=== PATIENT | male | born 1975 | race Caucasian/White ===

== ENCOUNTER 2019-10-23 17:50 | Emergency (ER) | payer SELFPAY ==
[2019-10-23 17:52] VITALS: BP 92/75; PULSE 81; RESP 16; TEMP 37.2; O2SAT 94; BMI 22.1
[2019-10-23 18:06] VITALS: BP 117/73; PULSE 73; RESP 16; O2SAT 96
--- NOTE | 2019-10-23 18:08 | CT_ITS ---
STUDY: CT BRAIN WITHOUT CONTRAST REASON FOR EXAM: Male, 44 years old. SEIZURES TODAY RADIATION DOSAGE (If Supplied By Facility): CTDIvol = ( 44.99 ) mGy, DLP = ( 846.73 ) mGycm TECHNIQUE: Transaxial CT imaging of the brain was performed without administration of intravenous contrast material. Individualized dose optimization techniques were used for this CT. COMPARISON: No relevant priors. FINDINGS: Normal soft tissue structures. Normal calvarium. Normal size ventricles and extra-axial spaces for the patient''s age. Normal white matter tracts of the cerebral hemispheres. Normal basal ganglia and thalami. Normal brainstem. Normal cerebellum. There is no intracranial hemorrhage. There are no findings of an acute ischemic infarction. Mild mucosal thickening in the left maxillary sinus and bilateral sphenoid sinus as well as moderate mucosal thickening in the ethmoid air cells bilaterally CT/Brain/Head without Contrast IMPRESSION: Normal unenhanced CT scan of the brain. Left maxillary, bilateral ethmoid and sphenoid sinus disease MRI may be useful for further assessment if indicated Electronically Signed: Gianni Barriga MD at 19:17 EDT , Service support ,
[2019-10-23 18:24] LABS: Absolute Lymphocyte Count 1.08 X10^3/uL (0.83-4.51); Absolute Neutrophil Count 2.1 X10^3/uL (2.0-7.7); Basophil# 0.03 X10^3/uL; Basophil% 0.8 % (0-1); Eosinophil# 0.17 X10^3/uL; Eosinophils% 4.5 % (0-5); Hematocrit 40.4 % (40-54); Hemoglobin 13.4 g/dL (13.0-16.5); Lymphocyte # 1.08 X10^3/ul (4.0); Lymphocyte % 28.9 % (19-41); Mean Corp Hgb Conc 33.2 g/dL (32-36); Mean Corpuscular Hgb 30.6 pg (27.0-32.0); Mean Corpuscular Volume 92.2 fL (80-94); Mean Platelet Vol. 8.9 fl (6.2-12.0); Monocyte# 0.34 X10^3/uL; Monocyte% 9.1 % (0-10); NRBC Flagged by Analyzer 0 % (0-5); Neutrophil # 2.11 X10^3/uL (2.7-7.7); Neutrophil % 56.4 % (47-70); Platelet Count 242 K/mm3 (150-450); RBC Distribution Width CV 14.3 % (11.6-14.6); RBC Distribution Width SD 48.3 fl (35.1-43.9); Red Blood Count 4.38 M/mm3 (4.6-6.2); White Blood Count 3.7 K/mm3 (4.4-11.0)
[2019-10-23] MEDS: 0.9% Normal Saline 1,000 ML 150 ML IV (18:25)
[2019-10-23 18:39] LABS: ALB/GLOB Ratio 0.9 RATIO (0.9-2.4); AST(SGOT) 39 U/L (15-37); Alanine Aminotransfer ALT/SGPT 56 U/L (16-61); Albumin, Serum 3.5 g/dL (3.2-5.0); Alkaline Phosphatase 65 U/L (45-117); Anion Gap 6 (5-15); BUN 8 mg/dL (7-18); BUN/Creat Ratio 9.9 RATIO (10-20); Calcium,Total 8.5 mg/dL (8.5-10.1); Chloride 103 mmol/L (98-107); Creatinine, Serum 0.81 mg/dL (0.70-1.30); EST Glomerular Filtration Rate 110 mL/min (>60); Est Glom Filt Rate - Afr Amer 133 mL/min (>60); Estimated Creatinine Clearance 137.22 ml/min; Globulin 3.7 g/dL (2.2-4.2); Glucose 80 mg/dL (74-106); Potassium 3.9 mmol/L (3.5-5.1); Protein, Total 7.2 g/dL (6.4-8.2); Sodium Level 135 mmol/L (136-145)
[2019-10-23 19:05] LABS: Carbamazepine (Tegretol) 6.7 ug/mL (4.0-12.0)
--- NOTE | 2019-10-23 19:51 | ED.RN ---
PT LEFT WITHOUT DISCHARGE INSTRUCTIONS, PT REMOVED IV FROM RFA AND WAS FOUND IN THE TRASH. DR. BLAIR AWARE OF SAME.
--- NOTE | 2019-10-23 20:07 | ED.VISSUMM ---
- ER Visit Summary Date of Service: 10/23/19 Chief Complaint: [Seizure] History of Present Illness: The patient is a 44 M [scented to the emergency department after sustaining seizures. Patient's friend called EMS. Patient apparently has a history of alcohol abuse and has been sober for the last 5 days. Patient has a seizure history and is on Tegretol which she states that he is been compliant with. Per EMS they noticed the 3 seizures separately that lasted about a minute each. Patient denies losing control of bowel or bladder. He denies biting his mouth or lip or tongue. Patient has a history of hypertension. He is somewhat of a poor historian. He denies recent illness.] Physical Examination: [HEENT-PERRLA, EOMI. Cranial nerves II through XII grossly intact. TMs clear. Mucous membranes moist. No adenopathy. No evidence of trauma to his head noted. Cardiovascular-regular rate and rhythm without murmur or ectopy Lungs-clear to auscultation, chest wall stable without crepitus or subcu emphysema Abdomen-normoactive bowel sounds, soft, nontender, no rebound or rigidity, no peritoneal signs. Neuro uqgc-[id number] and heel rodriguez testing within normal limits, negative Romberg, negative for, fundi benign. Extremities-intact ?4, normal range of motion, normal pulses, atraumatic] Test Results: [CT scan of the brain without contrast obtained showed some sinus disease but nothing acute. CBC with it showing a 3.7, hemoglobin 13, hematocrit 40, placed 242. Chemistries unremarkable. LFTs were normal. Tegretol level was 6.7. Alcohol was 23. Toxicology screen ordered and patient did not give a urinalysis.] Emergency Department Course and Treatment: [He had an IV line established on arrival. EMS had already given 10 mg of intranasal Versed.] Patient left prior to treatment completion. Before I could go back and discussed results of testing with patient he had left the department. Treatment Plan: [Left prior to treatment completion] Disposition: [Left prior to treatment completion] Impression: [Seizure-recurrent] This note was generated with [employer] software. It may contain incorrect words, spelling, and punctuation that were not noted in review of the chart prior to signing ED Disposition - Plan for ED Patient: Disposition: Home or Assisted Living Referrals: Care Physician,No Primary [Primary Care Provider] -
== END 2019-10-23 19:52 | disposition home or self-care (01) ==
LOC: ED 19:42
PROVIDERS: Emergency Provider Emergency Medicine
DX: R56.9 Unspecified convulsions (principal); F17.200 Nicotine dependence, unspecified, uncomplicated; Z53.29 Procedure and treatment not carried out because of patient's decision for other reasons
CPT/HCPCS: 70450; 80053; 80156; 80320; 85025; 99285; J7030; A4216; G0480

== ENCOUNTER 2019-10-30 01:19 | Inpatient (IN) | payer SELFPAY ==
[2019-10-30] VITALS (23 sets, daily range): BP systolic 91–132; BP diastolic 56–93; PULSE 64–87; RESP 7–18; TEMP 36.3–36.7; O2SAT 92–100; BMI 24.2; BMI 17.0; BMI 17.6
--- NOTE | 2019-10-30 01:22 | CT_ITS ---
STUDY: CT BRAIN WITHOUT CONTRAST REASON FOR EXAM: Male, 44 years old. SZ, S/P FALL, DROPPED OFF ON GROUND, FOUND WITH EMESIS AND SEIZING, HX SZ SINCE AGE 4 RADIATION DOSAGE (If Supplied By Facility): CTDIvol = ( 44.99 ) mGy, DLP = ( 880.27 ) mGycm TECHNIQUE: Transaxial CT imaging of the brain was performed without administration of intravenous contrast material. Individualized dose optimization techniques were used for this CT. COMPARISON: No relevant priors. FINDINGS: Normal soft tissue structures. Normal calvarium. Normal size ventricles and extra-axial spaces for the patient''s age. Normal white matter tracts of the cerebral hemispheres. Normal basal ganglia and thalami. Normal brainstem. Normal cerebellum. There is no intracranial hemorrhage. There are no findings of an acute ischemic infarction. Normal visualized paranasal sinuses. CT/Brain/Head without Contrast IMPRESSION: Normal unenhanced CT scan of the brain. Electronically Signed: Jimy Concepcion MD at 2:51 EDT , Service support ,
--- NOTE | 2019-10-30 01:25 | ED.VIS.GEN ---
History of Present Illness Chief Complaint: Alt LOC Limited by: Stupor Narrative: Patient was dropped off by a car. He ambulated into the emergency department and then fell to the ground. He had altered mental status. Questionable seizure activity. Per notes the patient was in the emergency department approximately a week ago. At that time he had a few outpatient seizures lasting a minute at a time. He has a history of seizure disorder and is on Tegretol. His Tegretol levels were therapeutic at that time. He has a history of alcohol use. His alcohol levels at that time were negative as he had been sober for 5 days. He vomited in the ambulance bay and collapsed. There was some mild tonic-clonic shaking for approximately a minute. Past Medical History - Allergies and Home Meds Allergies/Adverse Reactions: Allergies codeine Allergy (Verified 10/30/19 01:25) NEEDS FOLLOW-UP erythromycin base Allergy (Verified 10/23/19 18:08) NEEDS FOLLOW-UP phenytoin [From Dilantin] Allergy (Verified 10/30/19 01:25) NEEDS FOLLOW-UP Primary Care Physician: Care Physician,No Primary [Primary Care Provider] - Prior records reviewed: Yes Past Medical History: - - Alcohol abuse, seizure disorder Surgical History: - - Reviewed Smoking Status: Smoker, status unknown Alcohol: Heavy Drugs: None Review of Systems ROS: Unable to Obtain - Unable to obtain secondary to the patient with altered mental status Physical Exam Vital Signs/Narrative: Vital Signs Temp Pulse Resp BP Pulse Ox 10/30/19 01:21 97.6 F L 84 16 127/93 H 98 General: Well nourished, Well developed Head: Normocephalic, Atraumatic. Negative for: Trauma, Tenderness Eyes: Perrl, EOMI ENT: Moist mucous membranes, No rhinorrhea Neck: Supple, Nontender Cardiovascular: Regular rate, Regular rhythm, No murmurs Respiratory: No distress, CTA bilaterally, Chest nontender Abdomen: Soft, Nontender, Nondistended, Normal bowel sounds Back: Nontender, Normal Inspection Extremities: Nontender, No edema Skin: Normal color, No rash Neurological: - - Patient appears intoxicated with alcohol. He has had a few intermittent tonic-clonic seizures lasting a minute. He then wakes up and can answer questions for short period of time however he is intoxicated. Diagnostic/Tx/Re-eval - Medical Decision Making IV established and patient given a dose of Ativan to stop these intermittent tonic-clonic seizures. Lab work and CT head obtained. Patient given IV fluids. CT head negative. Lab work shows a mildly low sodium and chloride. This was replaced with IV fluids. His carbamazepine level is on the low side of normal. Patient stated he has not missed a dose. Had approximately 10-15 seizures in the emergency department. They are never sustained. Patient stated Versed is the only thing that works for him. He was given a dose of IV Versed and this stopped his seizures. He is sleeping comfortably without any seizure activity. Discussed with the hospitalist. Alcohol level is 200. I do not think this is an alcohol withdrawal seizure. I think this is epilepsy related seizures. I feel he will have to increase the dosing of his medications. He will be admitted to the intensive care unit for close monitoring due to his sedation - Critical Care Time Critical care time (excluding procedures): 30-74 minutes ED Disposition - Plan for ED Patient: Disposition: Acute Care Hospital [facility] Diagnosis: Epilepsy, Alcohol intoxication
[2019-10-30] MEDS: Midazolam 2 MG/2 ML Syringe IM (01:44)
[2019-10-30] MEDS: Ondansetron 4 MG/2 ML Vial IV (01:51)
[2019-10-30] MEDS: LORazepam 2 MG/ML Syringe IV (01:51)
[2019-10-30] MEDS: 0.9% Normal Saline 1,000 ML 1000 ML IV (01:57)
[2019-10-30 02:06] LABS: Absolute Lymphocyte Count 1.72 X10^3/uL (0.83-4.51); Absolute Neutrophil Count 3.1 X10^3/uL (2.0-7.7); Basophil# 0.04 X10^3/uL; Basophil% 0.7 % (0-1); Eosinophil# 0.24 X10^3/uL; Eosinophils% 4.2 % (0-5); Hematocrit 37.7 % (40-54); Hemoglobin 13.1 g/dL (13.0-16.5); Lymphocyte # 1.72 X10^3/ul (4.0); Lymphocyte % 30.3 % (19-41); Mean Corp Hgb Conc 34.7 g/dL (32-36); Mean Corpuscular Volume 89.1 fL (80-94); Mean Platelet Vol. 8.2 fl (6.2-12.0); Monocyte# 0.53 X10^3/uL; Monocyte% 9.3 % (0-10); NRBC Flagged by Analyzer 0 % (0-5); Neutrophil # 3.13 X10^3/uL (2.7-7.7); Neutrophil % 55.1 % (47-70); Platelet Count 211 K/mm3 (150-450); RBC Distribution Width CV 14.2 % (11.6-14.6); RBC Distribution Width SD 46.1 fl (35.1-43.9); Red Blood Count 4.23 M/mm3 (4.6-6.2); White Blood Count 5.7 K/mm3 (4.4-11.0)
[2019-10-30] MEDS: Midazolam 5 MG/ML Syringe IV (02:11)
[2019-10-30 02:21] LABS: Anion Gap 11 (5-15); BUN 7 mg/dL (7-18); BUN/Creat Ratio 7.7 RATIO (10-20); Calcium,Total 8.4 mg/dL (8.5-10.1); Chloride 94 mmol/L (98-107); EST Glomerular Filtration Rate 97 mL/min (>60); Est Glom Filt Rate - Afr Amer 118 mL/min (>60); Estimated Creatinine Clearance 123.05 ml/min; Glucose 87 mg/dL (74-106); Potassium 3.4 mmol/L (3.5-5.1); Sodium Level 129 mmol/L (136-145)
[2019-10-30 02:36] LABS: Carbamazepine (Tegretol) 7.6 ug/mL (4.0-12.0)
--- NOTE | 2019-10-30 03:40 | HP.PCM_ITS ---
Problem List (1) Status epilepticus Status: Acute (2) Alcohol abuse Status: Chronic (3) Marfan's syndrome Status: Chronic (4) Epilepsy Status: Chronic (5) Alcohol intoxication Status: Acute History of Present Illness Date of Admission: 10/30/19 Chief Complaint: Change in mental status. The patient is a 44 year old M with past medical history as mentioned above presented to the emergency room because of change in mental status. At this time, patient is very sleepy and lethargic because he received total of 7 mg of Versed and 2 mg of Ativan for seizure and he is not able to provide any history. No family at the bedside. Patient is from [place] and he has been with his friend for a month. Reportedly, patient was dropped off by a car at the emergency department, ambulated into the emergency department and he fell to the ground. According to ER physician, patient had approximately 10-15 brief episodes of tonic-clonic seizure while in the emergency department, lasted for around 30 seconds each and received 2 mg of IV Ativan which did not help and then he received total of 7 mg of IV Versed and seizure stopped. Patient came to the emergency department on 1 week ago for seizure, had CT scan done which was unremarkable and he was discharged home. Apparently, he had a history of alcohol abuse but reportedly, he has been sober for the last 5 days. According to the ER staff, patient had a history of epilepsy since he was 4 years old and he has been on Tegretol since then. Patient stated to the ER staff that usually he has 5-6 brief seizures every day and that is usual for him. He has been following up with neurology in [facility]. Reportedly, patient mentioned that he did not miss any dose of his Tegretol. In the emergency department, his vital signs were stable. His routine blood work was remarkable for sodium of 129 and potassium of 3.4. Blood alcohol level was 200. Carbamazepine level is 7.[address] scan brain showed no acute findings. He is being admitted for status epilepticus. Past Medical History Past Medical History (Chronic Problems): Chronic Problems Alcohol abuse (Chronic) Marfan's syndrome (Chronic) Epilepsy (Chronic) Allergies codeine Allergy (Verified 10/30/19 01:25) NEEDS FOLLOW-UP erythromycin base Allergy (Verified 10/23/19 18:08) NEEDS FOLLOW-UP phenytoin [From Dilantin] Allergy (Verified 10/30/19 01:25) NEEDS FOLLOW-UP Home Medications: Ambulatory Orders Medication Instructions Recorded Carbamazepine [Tegretol] 400 mg PO BIDCM 10/30/19 Surgical History: noncontributory Psychiatric History: No pertinent psych hx Lives: Friends Smoking Status: Current every day smoker Alcohol: Heavy Drugs: None - *Family History Maternal History Items: No pertinent history Paternal History Items: No pertinent history Review of Systems Constitutional: Reports: - - Unobtainable, patient is very sleepy and lethargic. Eyes: Reports: - - Unobtainable, patient is very sleepy and lethargic. HEENT: Reports: - - Unobtainable, patient is very sleepy and lethargic. Cardiovascular: Reports: - - Unobtainable, patient is very sleepy and lethargic. Respiratory: Reports: - - Unobtainable, patient is very sleepy and lethargic. Gastrointestinal: Reports: - - Unobtainable, patient is very sleepy and lethargic. Genitourinary: Reports: - - Unobtainable, patient is very sleepy and lethargic. Musculoskeletal: Reports: - - Unobtainable, patient is very sleepy and lethargic. Neurological: Reports: - - Unobtainable, patient is very sleepy and lethargic. Psychiatric: Reports: - - Unobtainable, patient is very sleepy and lethargic. VTE Information - Inpt Only VTE Present on Admission: No VTE Mechan Device Prophylaxis: None VTE Pharm Prophylaxis ordered?: Yes Patient Problems: Active and Suspected Problems Status epilepticus (Acute) Alcohol intoxication (Acute) - Physical Exam Vitals/I&O's: Vital Signs Temp Pulse Resp BP Pulse Ox 97.6 F L 84 17 116/74 98 10/30/19 01:21 10/30/19 02:20 10/30/19 02:20 10/30/19 02:20 10/30/19 02:20 Oxygen Delivery Method Non-Rebreather Weight: 188 lb 7.924 oz Body Mass Index (BMI) 24.2 Finger Stick Blood Glucose 88 Intake and Output for Last 24 Hours 10/28/19 10/29/19 10/30/19 23:59 23:59 23:59 Intake Total 1000 / 1000 Balance 1000 / 1000 General: - - Very sleepy, difficult to arouse, moving all limbs. HEENT: Atraumatic, PERRLA, EOMI, Normocephalic Oral: Moist Mucosa, No Gingival or Mucosal Lesions/ Ulcerations Neck: Supple, No JVD, Negative Carotid Bruits, Trachea Midline, Thyroid Normal Size and Texture Lungs: Clear to auscultation, Normal air movement, No rhonchi, No wheeze, No rales Cardiovascular: Regular rate, Regular Rhythm, Normal S1, Normal S2, PMI Normal Abdomen: Bowel Sounds Present, Soft, Non Tender, Non-Distended, No Hepato- splenomegaly Extremities: No clubbing, No cyanosis, No edema Skin: No rashes, No breakdown Lymphatic: No Cervical, Supraclavicular, or Inguinal Adenopathy Neurological: Cranial nerves II-XII grossly intact, - - Moving all limbs. Psych/Mental Status: - - Unable to assess. Laboratory Results 10/30/19 01:55: WBC 5.7, RBC 4.23 L, Hgb 13.1, Hct 37.7 L, MCV 89.1, MCH 31.0, MCHC 34.7, RDW Std Deviation 46.1 H, RDW Coeff of Evan 14.2, Plt Count 211, MPV 8.2, Immature Gran % (Auto) 0.400, Neut % (Auto) 55.1, Lymph % (Auto) 30.3, Moore % (Auto) 9.3, Eos % (Auto) 4.2, Baso % (Auto) 0.7, Absolute Neuts (auto) 3.1, Absolute Lymphs (auto) 1.72, Nucleated RBC % 0 10/30/19 01:55: Sodium 129 L, Potassium 3.4 L, Chloride 94 L, Carbon Dioxide 24.0, Anion Gap 11, BUN 7, Creatinine 0.90, Estim Creat Clear Calc 123.05, Est GFR (MDRD) Af Amer 118, Est GFR (MDRD) Non-Af 97, BUN/Creatinine Ratio 7.7 L, Glucose 87, Calcium 8.4 L 10/30/19 01:55: Ethyl Alcohol 200.0 10/30/19 01:55: Carbamazepine 7.6 Clinical Impression(s) from Imaging Studies Brain CT 10/30/19 01:22 IMPRESSION: Normal unenhanced CT scan of the brain. Electronically Signed: Jimy Concepcion MD at 2:51 EDT , Service support , Assessment/Plan All Active Problems Status epilepticus (Acute) Alcohol intoxication (Acute) This is a 44 years old male patient presented to the emergency room because of change in mental status, had multiple brief tonic clonic seizures approximately 10-15 episodes in the ED and is being admitted for status epilepticus. #1 status epilepticus: In context of history of epilepsy since age of 4, has been on carbamazepine, compliant. Patient had a history of alcohol abuse but reportedly, he was sober for 5 days. Today blood alcohol level is 200. I doubt that this seizure is due to alcohol withdrawal. CT scan brain showed no acute findings. Carbamazepine level is therapeutic. Patient is very sleepy and lethargic but vital signs are stable. Plan: Admit to ICU, critical care monitoring, complete bedrest, aspiration and seizure precautions, IV fluids with potassium replacement and D5, critical care consult, tele-neurology consult, carbamazepine 400 mg p.o. 3 times daily to be started when patient is awake, repeat CBC and BMP tomorrow morning. #2 hyponatremia/mild hypokalemia: Likely due to dehydration. Plan for IV fluids with D5 normal saline and potassium supplement, repeat BMP tomorrow morning. #3 alcohol intoxication: Blood alcohol level is 200. LFT was unremarkable. At this time, patient is very lethargic. No evidence of acute alcohol withdrawal. At this time, I do not think his seizures due to alcohol withdrawal. Plan as above, start IV folic acid and thiamine as above. #4 Marfan syndrome: Stable. #5 epilepsy: Plan as above. #6 DVT prophylaxis: Subcu Lovenox. This note was generated with [employer] dictation software. It may contain incorrect words, spelling, and punctuation that were not noted in checking the note before signing. Inpatient E&M: 85081 Init Hosp L3
[2019-10-30] MEDS: 0.9% Saline Lock 10 ML Syringe IV (04:39)
[2019-10-30 06:09] LABS: Absolute Lymphocyte Count 1.35 X10^3/uL (0.83-4.51); Absolute Neutrophil Count 2.7 X10^3/uL (2.0-7.7); Basophil# 0.04 X10^3/uL; Basophil% 0.8 % (0-1); Eosinophil# 0.26 X10^3/uL; Eosinophils% 5.5 % (0-5); Hematocrit 38.4 % (40-54); Hemoglobin 12.9 g/dL (13.0-16.5); Lymphocyte # 1.35 X10^3/ul (4.0); Lymphocyte % 28.4 % (19-41); Mean Corp Hgb Conc 33.6 g/dL (32-36); Mean Corpuscular Hgb 30.6 pg (27.0-32.0); Mean Corpuscular Volume 91.2 fL (80-94); Mean Platelet Vol. 8.4 fl (6.2-12.0); Monocyte# 0.35 X10^3/uL; Monocyte% 7.4 % (0-10); NRBC Flagged by Analyzer 0 % (0-5); Neutrophil # 2.74 X10^3/uL (2.7-7.7); Neutrophil % 57.7 % (47-70); Platelet Count 196 K/mm3 (150-450); RBC Distribution Width CV 14.1 % (11.6-14.6); RBC Distribution Width SD 47.5 fl (35.1-43.9); Red Blood Count 4.21 M/mm3 (4.6-6.2); White Blood Count 4.8 K/mm3 (4.4-11.0)
[2019-10-30 06:21] LABS: Anion Gap 8 (5-15); BUN 6 mg/dL (7-18); BUN/Creat Ratio 8.2 RATIO (10-20); Calcium,Total 8.1 mg/dL (8.5-10.1); Chloride 102 mmol/L (98-107); Creatinine, Serum 0.73 mg/dL (0.70-1.30); EST Glomerular Filtration Rate 124 mL/min (>60); Est Glom Filt Rate - Afr Amer 150 mL/min (>60); Estimated Creatinine Clearance 154.84 ml/min; Glucose 83 mg/dL (74-106); Potassium 3.7 mmol/L (3.5-5.1); Sodium Level 135 mmol/L (136-145)
[2019-10-30] MEDS: LORazepam 2 MG/ML Syringe 1 MG IV ×3 (08:15→17:11)
--- NOTE | 2019-10-30 08:30 | PCM.PROGNOTE ---
Patient Problems: Active and Suspected Problems Status epilepticus (Acute) Alcohol intoxication (Acute) Subjective: The patient is a 44-year-old male with a past medical history of seizure disorder, Marfan syndrome, tobacco dependence and alcohol dependence who presented to the emergency department today due to repeated seizures. He was dropped off at the ER by a car ambulated into the emergency department and then fell to the ground. He had altered mental status. He had been seen in the emergency department 1 week prior also for repeated seizures. His only medication is Tegretol and he is compliant with the Tegretol. Levels at both admissions were within normal limits. His alcohol level at the first visit was 0 but this morning was 200. He recently moved to [place] from [place]. I was able to talk with Salvador this morning for a brief time prior to him having a seizure. He states he drinks a Sixpack a day and he is done this for over 20 years. Also uses marijuana, not prescribed to him, 2-3 times a day every day. There was no tox screen done at admission. His alcohol level at presentation to the emergency department was 200. The Tegretol level was 7.6. He does not see a neurologist but told me he sees a neurosurgeon. His speech is slurred and difficult to understand. He does not make eye contact. Eyes any recent head trauma. He told the emergency room doctor he has 5-6 seizures a day on a regular basis. Lab was personally reviewed. White blood cell count is within normal limits with an unremarkable differential. Hemoglobin today is 12.9 following IV fluids. Platelets are normal. Sodium today is 135 but was 129 at admission. The potassium today is 3.7, up from 3.4 in the emergency department. BUN is 8 and the creatinine is 0.73. Glucose at presentation to the ER was 87. Calcium was low at 8.4 and the calcium today is 8.1. Liver panel 1 week ago was within normal limits. Brain CT this morning was normal. He c/o abdominal pain to me but denied fevers/chills/SOB/cough/CP. He then became unresponsive and had generalized tonic clonic activity. He was turned to the left. He did not respond to a sternal rub nor a painful stimulus to his fingernail. Muscles were rigid. Tonic-clonic activity lasted approximately 20 to 30 seconds. After a short time he briefly opened his eyes and he again had generalized tonic-clonic activity and was unresponsive. He was given 1 mg of Ativan IV and the seizure stopped. After a few minutes he opened his eyes and was able to follow commands. The [facility] neurologist then came on line. I was present when the [facility] neurologist was on screen and provided hx. His recommendation is to add Keppra 500 mg BID to his drug regimen and get an EEG. - Physical Exam Vitals/I&O's: Vital Signs Temp Pulse Resp BP Pulse Ox 97.4 F L 77 17 118/88 H 98 10/30/19 05:00 10/30/19 07:00 10/30/19 07:00 10/30/19 07:00 10/30/19 07:20 Oxygen Flow Rate (L/min) 2 Oxygen Delivery Method Nasal Cannula Weight: 184 lb 15.485 oz Body Mass Index (BMI) 17.6 Finger Stick Blood Glucose 88 Intake and Output for Last 24 Hours 10/28/19 10/29/19 10/30/19 23:59 23:59 23:59 Intake Total 1102.45 / 1102.45 Output Total 1350 / 1350 Balance -247.55 / -247.55 General: Cooperative, - - His speech is slurred and sometimes unintelligible. Head is turned to the left and he does not make eye contact when I am talking to him. He is able to follow simple commands. He is cachetic in appearance. HEENT: Atraumatic, PERRLA, EOMI, Normocephalic Oral: Dry Mucosa, - - When he protruded his tongue after the 2 seizures it deviated to the left Neck: Supple, No JVD, Negative Carotid Bruits, No Nodes, No Nuchal Rigidity, Trachea Midline Lungs: Clear to auscultation - anterior and lateral but diminished Cardiovascular: Regular rate, Regular Rhythm, Normal S1, Normal S2, No murmurs, No rub noted, No Gallop Abdomen: Bowel Sounds Present, Soft, Non-Distended, Tender - in the mid epigastric area, - - no guarding with palpation Extremities: No clubbing, No cyanosis, No edema, No Calf Tenderness Skin: No rashes, No breakdown Musculoskeletal: Cachexia Neurological: - - No facial asymmetry. Can lift both arms up in both legs up off the bed without assistance. Deviates mildly to the left when protruded. Having generalized tonic-clonic activity x2 events while I was observing him. Speech is slurred. Psych/Mental Status: Flat Affect, - - was agitated and swearing at his nurse this morning. Left AMA from the ED last week. Laboratory Results 10/30/19 01:55: WBC 5.7, RBC 4.23 L, Hgb 13.1, Hct 37.7 L, MCV 89.1, MCH 31.0, MCHC 34.7, RDW Std Deviation 46.1 H, RDW Coeff of Evan 14.2, Plt Count 211, MPV 8.2, Immature Gran % (Auto) 0.400, Neut % (Auto) 55.1, Lymph % (Auto) 30.3, [place] % (Auto) 9.3, Eos % (Auto) 4.2, Baso % (Auto) 0.7, Absolute Neuts (auto) 3.1, Absolute Lymphs (auto) 1.72, Nucleated RBC % 0 10/30/19 01:55: Sodium 129 L, Potassium 3.4 L, Chloride 94 L, Carbon Dioxide 24.0, Anion Gap 11, BUN 7, Creatinine 0.90, Estim Creat Clear Calc 123.05, Est GFR (MDRD) Af Amer 118, Est GFR (MDRD) Non-Af 97, BUN/Creatinine Ratio 7.7 L, Glucose 87, Calcium 8.4 L 10/30/19 01:55: Ethyl Alcohol 200.0 10/30/19 01:55: Carbamazepine 7.6 10/30/19 06:01: Sodium 135 L, Potassium 3.7, Chloride 102, Carbon Dioxide 25.0, Anion Gap 8, BUN 6 L, Creatinine 0.73, Estim Creat Clear Calc 154.84, Est GFR (MDRD) Af Amer 150, Est GFR (MDRD) Non-Af 124, BUN/Creatinine Ratio 8.2 L, Glucose 83, Calcium 8.1 L 10/30/19 06:01: WBC 4.8, RBC 4.21 L, Hgb 12.9 L, Hct 38.4 L, MCV 91.2, MCH 30.6, MCHC 33.6, RDW Std Deviation 47.5 H, RDW Coeff of Evan 14.1, Plt Count 196, MPV 8.4, Immature Gran % (Auto) 0.200, Neut % (Auto) 57.7, Lymph % (Auto) 28.4, [place] % (Auto) 7.4, Eos % (Auto) 5.5 H, Baso % (Auto) 0.8, Absolute Neuts (auto) 2.7, Absolute Lymphs (auto) 1.35, Nucleated RBC % 0 Current Medications Carbamazepine (Tegretol) 400 mg PO TIDCM [facility] Enoxaparin Sodium (Lovenox) 40 mg SC DAILY [facility] Sodium Chloride () 250 mls @ 15 mls/hr IV .[id number] PRN PRN Reason: Saline Flush Potassium Chloride/Dextrose/Sod Cl () 1,000 mls @ 75 mls/hr IV .[id number] [facility] Last Infusion: 10/30/19 05:30 Dose: 75 mls/hr Documented by: Folic Acid 1 mg/ Sodium (Chloride) 50.2 mls @ 200 mls/hr IV DAILY [facility] Last Infusion: 10/30/19 05:11 Dose: Infused Documented by: Thiamine HCl 100 mg/ Sodium (Chloride) 51 mls @ 200 mls/hr IV DAILY [facility] Last Infusion: 10/30/19 05:30 Dose: Infused Documented by: Midazolam HCl (Versed) 5 mg IV X1 PRN PRN Reason: SEIZURE Ondansetron HCl (Zofran) 4 mg IV Q8H PRN PRN PRN Reason: NAUSEA/VOMITING Sodium Chloride () 10 - 40 ml IV UD PRN PRN Reason: SALINE FLUSH Last Admin: 10/30/19 04:39 Dose: 10 ml Documented by: Medical Necessity - Tobacco Use Smoking Status: Current every day smoker Assessment/Plan All Active Problems Status epilepticus (Acute) Alcohol intoxication (Acute) Impressions 1. Status epilepticus 2. Seizure disorder with therapeutic Tegretol level while having status epilepticus. Not following with a neurologist. 3. Tobacco dependence 4. Alcohol dependence for greater than 20 years 5. Daily marijuana usage 6. History of Marfan syndrome 7. Underweight 8. Hypokalemia -resolved 9. Hyponatremia-improving Appreciate the assistance of the [facility] tele-neurologist. Will order an EEG. Give 1 gm Keppra IV now and then start 500 mg BID. If he is not awake and able to take pills within the next hour will insert an NG and restart the Tegretol. Ativan 1 mg PRN Q 4 H PRN seizures lasting > 1 minute or repeated seizures Continue Thiamine and add folic acid 1 mg daily Liver panel, magnesium, phosphorus, urine drug screen Consult the dietitian for recommendations regarding diet Dr. Little has been consulted to participate in management and we discussed the case this morning. Would like to get him a PCP to follow with since it looks like we are going to see him frequently with 2 visits in the ED within the past week SW to discuss follow up with him
[2019-10-30 08:53] LABS: Phosphorus 4.5 mg/dL (2.5-4.9)
[2019-10-30 09:01] LABS: Bedside Glucose 88 mg/dL (70-110)
[2019-10-30 09:03] LABS: Amphetamine Urine VISTA NEGATIVE (<1000 ng/mL); Barbiturate Urine VISTA NEGATIVE (< 200 ng/mL); Benzodiazepine Urine VISTA POSITIVE (< 200 ng/mL); Cocaine Urine VISTA NEGATIVE (< 300 ng/mL); Ecstacy Urine VISTA NEGATIVE (< 500 ng/mL); Methadone Urine VISTA NEGATIVE (< 300 ng/mL); PCP Urine VISTA NEGATIVE (< 25 ng/mL); THC Urine VISTA POSITIVE (< 50 ng/mL); Vista UDS pH Range 6
[2019-10-30 09:05] LABS: AST(SGOT) 30 U/L (15-37); Alanine Aminotransfer ALT/SGPT 40 U/L (16-61); Albumin, Serum 3.2 g/dL (3.2-5.0); Alkaline Phosphatase 64 U/L (45-117); Bilirubin, Direct 0.13 mg/dL (0.00-0.30); Globulin 3.2 g/dL (2.2-4.2); Magnesium 1.9 mg/dL (1.6-2.6); Protein, Total 6.4 g/dL (6.4-8.2)
[2019-10-30] MEDS: levETIRAcetam IV 1,000 MG/100 ML BAG 400 MG IV ×2 (09:05→17:48)
[2019-10-30] MEDS: carBAMazepine 200 MG Tablet 400 MG PO (10:08)
[2019-10-30] MEDS: Folic Acid/Vitamin B Comp W-C 1 Capsule 1 CAP PO (10:08)
--- NOTE | 2019-10-30 11:41 | CASEMGMT ---
SW participated in ICU rounds, met with pt in the attempt to do an assessment, however assessment cut short as pt started to shake and unable to answer questions, SW notified RN who came into room to tend to pt. SW did ask pt prior to this about living arrangement, insurance. Pt explained has been living with a friend from [place] in the friend's car, and they have been staying here in [place] to work at [employer]. Pt did confirm he is from [place] and is here to work. Pt has Medicaid in [place] and states plans to apply here. Pt agreeable to take a Medicaid application. SW inquired about a PCP, pt states plans to see someone. SW inquired if he has a doctor in mind or would like a list of PCPs in the area, pt agreeable to take a list. SW inquired about pharmacy, however then pt then covered his head and started shaking. SW notified RN who immediately came in to tend to pt. SW/CM will speak further w/pt when appropriate. SY did leave the following resources at pt's bedside: Medicaid Application, [facility] financial assistance form, Good [employer] information, information on other prescription assistance programs, and financial and alcohol abuse resource in the [facility]. SW/CM will follow up again when appropriate. AYAN Hancock
--- NOTE | 2019-10-30 13:00 | NURSING ---
Patient refused EEG, aware
--- NOTE | 2019-10-30 13:44 | CPS ---
Entered patient's room and introduced myself then explained that I was here to conduct and EEG. Patient verbally refused 2x and states that he just had one done 3 [address] [place]. Wilkinson was notified and responded that she was aware patient refused.
--- NOTE | 2019-10-30 16:36 | NURSING ---
Patient had back to back seizures, starting at 1636 and ending at 1724 for a total of 8 seizures. Patient received 1mg Ativan at 1640, 1mg of Ativan at 1711 and 5mg of versed at 1724. Dr. Wilkinson called to bedside at 1700. Patient was lethargic throughout seizure activity, however woke up at 1745 agitated and wanting to go home. Dr. Wilkinson, this RN and Suyapa Shore RN spoke with patient about needing to transfer to [facility] and the consequences of going home AMA. It was also explained to him that he just received large amounts of sedative medications to stop the seizures. Patient became more agitated with nursing staff. At 1820 patient started to try to get out of bed, ripping off his monitor. This RN and Suyapa Shore RN was at bedside and tried to calm patient down and to get back into bed, however patient was unable to be redirected. The patient became extremely agitated and a Code Nichole was called at 1825. After the code nichole and extra staff including HRO came to room, patient calmed down. The patient requested to get up and go to the bathroom, and upon physician approval, the patient was assisted to the BS by Suyapa Shoer, ANANTH. The patient remained awake, alert and oriented and continued to request to go AMA. Dr. Wilkinson at bedside to speak to patient. Patient continued to refuse transfer to [facility] or any other [facility]. Patient continued to demand to leave AMA. Patient left AMA at 1900.
[2019-10-30] MEDS: Midazolam 2 MG/2 ML Syringe 5 MG IV (17:24)
--- NOTE | 2019-10-30 17:37 | DS.PCM_ITS ---
Discharge Date and Diagnosis - Problem List Patient Problems: Active and Suspected Problems Status epilepticus (Acute) Alcohol intoxication (Acute) Date of Admission: 10/30/19 Date of Discharge: 10/30/19 - Primary Discharge Diagnosis Acute Problems: Active Problems Status epilepticus (Acute) Alcohol intoxication (Acute) Hypokalemia-resolved hyponatremia - Secondary Discharge Diagnosis Chronic Problems: Chronic Problems Alcohol abuse (Chronic) admits to a sixpack of beer a day greater than 20 years Marfan's syndrome (Chronic) Epilepsy (Chronic) Tobacco dependence Illicit marijuana usage 2-3 times daily. Hospital Course and Treatment Imaging Results: Clinical Impression(s) from Imaging Studies Brain CT 10/30/19 01:22 IMPRESSION: Normal unenhanced CT scan of the brain. Electronically Signed: Jimy Concepcion MD at 2:51 EDT , Service support , Laboratory Tests 10/30/19 10/30/19 10/30/19 Range/Units 08:40 06:01 06:01 WBC (4.4-11.0) K/mm3 RBC (4.6-6.2) M/mm3 Hgb (13.0-16.5) g/dL Hct (40-54) % MCV (80-94) fL MCH (27.0-32.0) pg MCHC (32-36) g/dL RDW Std Deviation (35.1-43.9) fl RDW Coeff of Evan (11.6-14.6) % Plt Count (150-450) K/mm3 MPV (6.2-12.0) fl Immature Gran % (Auto) (0.0-0.9) % Neut % (Auto) (47-70) % Lymph % (Auto) (19-41) % [place] % (Auto) (0-10) % Eos % (Auto) (0-5) % Baso % (Auto) (0-1) % Absolute Neuts (auto) (2.0-7.7) X10^3/uL Absolute Lymphs (auto) (0.83-4.51) X10^3/uL Nucleated RBC % (0-5) % Sodium (136-145) mmol/L Potassium (3.5-5.1) mmol/L Chloride (98-107) mmol/L Carbon Dioxide (21.0-32.0) mmol/L Anion Gap (5-15) BUN (7-18) mg/dL Creatinine (0.70-1.30) mg/dL Estim Creat Clear Calc ml/min Est GFR (MDRD) Af Amer (>60) mL/min Est GFR (MDRD) Non-Af (>60) mL/min BUN/Creatinine Ratio (10-20) RATIO Glucose (74-106) mg/dL Calcium (8.5-10.1) mg/dL Phosphorus 4.5 (2.5-4.9) mg/dL Magnesium 1.9 (1.6-2.6) mg/dL Total Bilirubin 0.20 (0.20-1.00) mg/dL Direct Bilirubin 0.13 (0.00-0.30) mg/dL AST 30 (15-37) U/L ALT 40 (16-61) U/L Alkaline Phosphatase 64 (45-117) U/L Total Protein 6.4 (6.4-8.2) g/dL Albumin 3.2 (3.2-5.0) g/dL Globulin 3.2 (2.2-4.2) g/dL Urine Opiates Screen NEGATIVE (< 300 ng/mL) Urine Methadone Screen NEGATIVE (< 300 ng/mL) Ur Barbiturates Screen NEGATIVE (< 200 ng/mL) Carbamazepine (4.0-12.0) ug/mL Ur Phencyclidine Scrn NEGATIVE (< 25 ng/mL) Ur Amphetamines Screen NEGATIVE (<1000 ng/mL) U Methamphetamin-MDMA NEGATIVE (< 500 ng/mL) U Benzodiazepines Scrn POSITIVE H (< 200 ng/mL) Urine Cocaine Screen NEGATIVE (< 300 ng/mL) U Cannabinoids Screen POSITIVE H (< 50 ng/mL) Ur Drug Screen Comment Ethyl Alcohol mg/dL POC Glucose (70-110) mg/dL 10/30/19 10/30/19 10/30/19 Range/Units 06:01 06:01 01:55 WBC 4.8 (4.4-11.0) K/mm3 RBC 4.21 L (4.6-6.2) M/mm3 Hgb 12.9 L (13.0-16.5) g/dL Hct 38.4 L (40-54) % MCV 91.2 (80-94) fL MCH 30.6 (27.0-32.0) pg MCHC 33.6 (32-36) g/dL RDW Std Deviation 47.5 H (35.1-43.9) fl RDW Coeff of Evan 14.1 (11.6-14.6) % Plt Count 196 (150-450) K/mm3 MPV 8.4 (6.2-12.0) fl Immature Gran % (Auto) 0.200 (0.0-0.9) % Neut % (Auto) 57.7 (47-70) % Lymph % (Auto) 28.4 (19-41) % [place] % (Auto) 7.4 (0-10) % Eos % (Auto) 5.5 H (0-5) % Baso % (Auto) 0.8 (0-1) % Absolute Neuts (auto) 2.7 (2.0-7.7) X10^3/uL Absolute Lymphs (auto) 1.35 (0.83-4.51) X10^3/uL Nucleated RBC % 0 (0-5) % Sodium 135 L (136-145) mmol/L Potassium 3.7 (3.5-5.1) mmol/L Chloride 102 (98-107) mmol/L Carbon Dioxide 25.0 (21.0-32.0) mmol/L Anion Gap 8 (5-15) BUN 6 L (7-18) mg/dL Creatinine 0.73 (0.70-1.30) mg/dL Estim Creat Clear Calc 154.84 ml/min Est GFR (MDRD) Af Amer 150 (>60) mL/min Est GFR (MDRD) Non-Af 124 (>60) mL/min BUN/Creatinine Ratio 8.2 L (10-20) RATIO Glucose 83 (74-106) mg/dL Calcium 8.1 L (8.5-10.1) mg/dL Phosphorus (2.5-4.9) mg/dL Magnesium (1.6-2.6) mg/dL Total Bilirubin (0.20-1.00) mg/dL Direct Bilirubin (0.00-0.30) mg/dL AST (15-37) U/L ALT (16-61) U/L Alkaline Phosphatase (45-117) U/L Total Protein (6.4-8.2) g/dL Albumin (3.2-5.0) g/dL Globulin (2.2-4.2) g/dL Urine Opiates Screen (< 300 ng/mL) Urine Methadone Screen (< 300 ng/mL) Ur Barbiturates Screen (< 200 ng/mL) Carbamazepine 7.6 (4.0-12.0) ug/mL Ur Phencyclidine Scrn (< 25 ng/mL) Ur Amphetamines Screen (<1000 ng/mL) U Methamphetamin-MDMA (< 500 ng/mL) U Benzodiazepines Scrn (< 200 ng/mL) Urine Cocaine Screen (< 300 ng/mL) U Cannabinoids Screen (< 50 ng/mL) Ur Drug Screen Comment Ethyl Alcohol mg/dL POC Glucose (70-110) mg/dL 10/30/19 10/30/19 10/30/19 Range/Units 01:55 01:55 01:55 WBC 5.7 (4.4-11.0) K/mm3 RBC 4.23 L (4.6-6.2) M/mm3 Hgb 13.1 (13.0-16.5) g/dL Hct 37.7 L (40-54) % MCV 89.1 (80-94) fL MCH 31.0 (27.0-32.0) pg MCHC 34.7 (32-36) g/dL RDW Std Deviation 46.1 H (35.1-43.9) fl RDW Coeff of Evan 14.2 (11.6-14.6) % Plt Count 211 (150-450) K/mm3 MPV 8.2 (6.2-12.0) fl Immature Gran % (Auto) 0.400 (0.0-0.9) % Neut % (Auto) 55.1 (47-70) % Lymph % (Auto) 30.3 (19-41) % [place] % (Auto) 9.3 (0-10) % Eos % (Auto) 4.2 (0-5) % Baso % (Auto) 0.7 (0-1) % Absolute Neuts (auto) 3.1 (2.0-7.7) X10^3/uL Absolute Lymphs (auto) 1.72 (0.83-4.51) X10^3/uL Nucleated RBC % 0 (0-5) % Sodium 129 L (136-145) mmol/L Potassium 3.4 L (3.5-5.1) mmol/L Chloride 94 L (98-107) mmol/L Carbon Dioxide 24.0 (21.0-32.0) mmol/L Anion Gap 11 (5-15) BUN 7 (7-18) mg/dL Creatinine 0.90 (0.70-1.30) mg/dL Estim Creat Clear Calc 123.05 ml/min Est GFR (MDRD) Af Amer 118 (>60) mL/min Est GFR (MDRD) Non-Af 97 (>60) mL/min BUN/Creatinine Ratio 7.7 L (10-20) RATIO Glucose 87 (74-106) mg/dL Calcium 8.4 L (8.5-10.1) mg/dL Phosphorus (2.5-4.9) mg/dL Magnesium (1.6-2.6) mg/dL Total Bilirubin (0.20-1.00) mg/dL Direct Bilirubin (0.00-0.30) mg/dL AST (15-37) U/L ALT (16-61) U/L Alkaline Phosphatase (45-117) U/L Total Protein (6.4-8.2) g/dL Albumin (3.2-5.0) g/dL Globulin (2.2-4.2) g/dL Urine Opiates Screen (< 300 ng/mL) Urine Methadone Screen (< 300 ng/mL) Ur Barbiturates Screen (< 200 ng/mL) Carbamazepine (4.0-12.0) ug/mL Ur Phencyclidine Scrn (< 25 ng/mL) Ur Amphetamines Screen (<1000 ng/mL) U Methamphetamin-MDMA (< 500 ng/mL) U Benzodiazepines Scrn (< 200 ng/mL) Urine Cocaine Screen (< 300 ng/mL) U Cannabinoids Screen (< 50 ng/mL) Ur Drug Screen Comment Ethyl Alcohol 200.0 mg/dL POC Glucose (70-110) mg/dL 10/30/19 Range/Units 01:23 WBC (4.4-11.0) K/mm3 RBC (4.6-6.2) M/mm3 Hgb (13.0-16.5) g/dL Hct (40-54) % MCV (80-94) fL MCH (27.0-32.0) pg MCHC (32-36) g/dL RDW Std Deviation (35.1-43.9) fl RDW Coeff of Evan (11.6-14.6) % Plt Count (150-450) K/mm3 MPV (6.2-12.0) fl Immature Gran % (Auto) (0.0-0.9) % Neut % (Auto) (47-70) % Lymph % (Auto) (19-41) % [place] % (Auto) (0-10) % Eos % (Auto) (0-5) % Baso % (Auto) (0-1) % Absolute Neuts (auto) (2.0-7.7) X10^3/uL Absolute Lymphs (auto) (0.83-4.51) X10^3/uL Nucleated RBC % (0-5) % Sodium (136-145) mmol/L Potassium (3.5-5.1) mmol/L Chloride (98-107) mmol/L Carbon Dioxide (21.0-32.0) mmol/L Anion Gap (5-15) BUN (7-18) mg/dL Creatinine (0.70-1.30) mg/dL Estim Creat Clear Calc ml/min Est GFR (MDRD) Af Amer (>60) mL/min Est GFR (MDRD) Non-Af (>60) mL/min BUN/Creatinine Ratio (10-20) RATIO Glucose (74-106) mg/dL Calcium (8.5-10.1) mg/dL Phosphorus (2.5-4.9) mg/dL Magnesium (1.6-2.6) mg/dL Total Bilirubin (0.20-1.00) mg/dL Direct Bilirubin (0.00-0.30) mg/dL AST (15-37) U/L ALT (16-61) U/L Alkaline Phosphatase (45-117) U/L Total Protein (6.4-8.2) g/dL Albumin (3.2-5.0) g/dL Globulin (2.2-4.2) g/dL Urine Opiates Screen (< 300 ng/mL) Urine Methadone Screen (< 300 ng/mL) Ur Barbiturates Screen (< 200 ng/mL) Carbamazepine (4.0-12.0) ug/mL Ur Phencyclidine Scrn (< 25 ng/mL) Ur Amphetamines Screen (<1000 ng/mL) U Methamphetamin-MDMA (< 500 ng/mL) U Benzodiazepines Scrn (< 200 ng/mL) Urine Cocaine Screen (< 300 ng/mL) U Cannabinoids Screen (< 50 ng/mL) Ur Drug Screen Comment Ethyl Alcohol mg/dL POC Glucose 88 (70-110) mg/dL [facility] tele-neurology Operations: None Procedures: None Summary of Care Provided: The patient is a 44-year-old male with a past medical history of seizure disorder, Marfan syndrome, tobacco dependence and alcohol dependence who presented to the emergency department on 10/30/19 due to repeated seizures. He was dropped off at the ER by a car ambulated into the emergency department and then fell to the ground. He had altered mental status. He had been seen in the emergency department 1 week prior also for repeated seizures. His only medication is Tegretol and he is compliant with the Tegretol. Levels at both admissions were within normal limits. His alcohol level at the first visit was 0 but this morning was 200. He recently moved to [place] from [place] and he is living with a friend, Joseluis. He was treated with 2 mg of IV Ativan in the urgency department for status epilepticus. He continued to seize and was given 5 mg of Versed IV and stopped seizing. A noncontrasted CT brain was normal. Labs showed a sodium of 129, potassium of 3.4, BUN of 7 and a creatinine of 0.9. The anion gap was 11. Calcium was mildly decreased at 8.4 and the albumin is 3.2. LFTs were within normal limits. Phosphorus and magnesium are also normal. The white blood cell count was 5.7 with an unremarkable differential. Hemoglobin was 13.1 and platelets were 211,000. Toxicology screen was positive for benzodiazepines which he was given in the emergency room and also positive for cannabinoids and he admits to smoking marijuana 2-3 times daily. He does not have a prescription for this. He was admitted to the intensive care unit. I was able to talk to him for a few minutes this morning and he once again had a generalized tonic-clonic seizure and was unresponsive after the seizure. He opened his eyes and talked to me very briefly and then had another tonic- clonic seizure. He was given 1 mg of Ativan and 1 g of IV Keppra. Consultation was obtained with [facility] tele-neurology and the neurologist recommended starting Keppra 500 mg twice daily. He also recommended continuing Tegretol and obtaining an EEG. He later woke up and took the p.o. Tegretol. When he was alert and appropriate he told me that he gets a rash with Keppra. He was started on Phenobarbital 64.4 mg BID instead of Keppra. No rash was observed after the IV Keppra was given and he had no pruritus. He had no seizures for several hours and he refused the EEG because he said he recently had 1 in [place] but he could not tell me the name of the hospital. Explained why the EEG was indicated to see if he is continues to have seizure after Keppra was started. He continued to refuse. At 1636 he had another seizure and continued to have 7 more seizures without waking up. Was given IV Ativan x2 and continued to have seizures. He was then given 5 mg of IV Versed and 1 g of Keppra and the seizure stopped. He woke up and was able to talk to me but is very drowsy and his speech is somewhat slurred. I recommended transfer to a tertiary facility/neuro intensive care unit where he could have continuous EEG monitoring and there was a neurologist on site. He initially refused but when I told him he had had 8 seizures in a row he was agreeable. I contacted his friend Joseluis West in [place] and explained the situation. He was in agreement with transfer and [place] lists her as his next of kin. His mother is still alive and lives in [place] but the number is not available. He also has children but their mothers will not allow them to see their dad due to the history of alcohol abuse per Joseluis. Was in contact with Dr. Nicholas from [facility] who is a neurointensivist and he accepted the pt for transfer to their neuro ICU. He recommended discontinuing Keppra and phenobarbital and giving the patient 40 mg/kg of body weight of Depacon IV. He also recommended 500 mg of IV thiamine and a liter bolus of lactated Ringer's. He will be taking 500 mg of Depakote TID if he remains seizure free. General: Cooperative, - - His speech is slurred and sometimes unintelligible. Head is turned to the left and he does not make eye contact when I am talking to him. He is able to follow simple commands. He is cachetic in appearance. HEENT: Atraumatic, PERRLA, EOMI, Normocephalic Oral: Dry Mucosa, - - When he protruded his tongue after the 2 seizures it deviated to the left Neck: Supple, No JVD, Negative Carotid Bruits, No Nodes, No Nuchal Rigidity, Trachea Midline Lungs: Clear to auscultation - anterior and lateral but diminished Cardiovascular: Regular rate, Regular Rhythm, Normal S1, Normal S2, No murmurs, No rub noted, No Gallop Abdomen: Bowel Sounds Present, Soft, Non-Distended, Tender - in the mid epigastric area, - - no guarding with palpation Extremities: No clubbing, No cyanosis, No edema, No Calf Tenderness Skin: No rashes, No breakdown Musculoskeletal: Cachexia Neurological: - - No facial asymmetry. Can lift both arms up in both legs up off the bed without assistance. Deviates mildly to the left when protruded. Having generalized tonic-clonic activity x2 events while I was observing him. Speech is slurred. Psych/Mental Status: Flat Affect, - - was agitated and swearing at his nurse this morning. Left AMA from the ED last week. This note was generated with [employer] dictation software. It may contain incorrect words, spelling, and punctuation that were not noted in checking the note before signing. Patient Problems: Active and Suspected Problems Status epilepticus (Acute) Alcohol intoxication (Acute) - Physical Exam Vitals/I&O's: Vital Signs Temp Pulse Resp BP Pulse Ox 97.6 F L 70 13 108/64 100 10/30/19 12:00 10/30/19 15:10/30/19 15:10/30/19 15:10/30/19 15:00 Oxygen Flow Rate (L/min) 2 Oxygen Delivery Method Room Air Weight: 184 lb 15.485 oz Body Mass Index (BMI) 17.6 Finger Stick Blood Glucose 88 Intake and Output for Last 24 Hours 10/28/19 10/29/19 10/30/19 23:59 23:59 23:59 Intake Total 1603.70 / 1603.70 Output Total 3100 / 3100 Balance -1496.30 / -1496.30 Laboratory Results 10/30/19 01:23: POC Glucose 88 10/30/19 01:55: WBC 5.7, RBC 4.23 L, Hgb 13.1, Hct 37.7 L, MCV 89.1, MCH 31.0, MCHC 34.7, RDW Std Deviation 46.1 H, RDW Coeff of Evan 14.2, Plt Count 211, MPV 8.2, Immature Gran % (Auto) 0.400, Neut % (Auto) 55.1, Lymph % (Auto) 30.3, [place] % (Auto) 9.3, Eos % (Auto) 4.2, Baso % (Auto) 0.7, Absolute Neuts (auto) 3.1, Absolute Lymphs (auto) 1.72, Nucleated RBC % 0 10/30/19 01:55: Sodium 129 L, Potassium 3.4 L, Chloride 94 L, Carbon Dioxide 24.0, Anion Gap 11, BUN 7, Creatinine 0.90, Estim Creat Clear Calc 123.05, Est GFR (MDRD) Af Amer 118, Est GFR (MDRD) Non-Af 97, BUN/Creatinine Ratio 7.7 L, Glucose 87, Calcium 8.4 L 10/30/19 01:55: Ethyl Alcohol 200.0 10/30/19 01:55: Carbamazepine 7.6 10/30/19 06:01: Sodium 135 L, Potassium 3.7, Chloride 102, Carbon Dioxide 25.0, Anion Gap 8, BUN 6 L, Creatinine 0.73, Estim Creat Clear Calc 154.84, Est GFR (MDRD) Af Amer 150, Est GFR (MDRD) Non-Af 124, BUN/Creatinine Ratio 8.2 L, Glucose 83, Calcium 8.1 L 10/30/19 06:01: WBC 4.8, RBC 4.21 L, Hgb 12.9 L, Hct 38.4 L, MCV 91.2, MCH 30.6, MCHC 33.6, RDW Std Deviation 47.5 H, RDW Coeff of Evan 14.1, Plt Count 196, MPV 8.4, Immature Gran % (Auto) 0.200, Neut % (Auto) 57.7, Lymph % (Auto) 28.4, [place] % (Auto) 7.4, Eos % (Auto) 5.5 H, Baso % (Auto) 0.8, Absolute Neuts (auto) 2.7, Absolute Lymphs (auto) 1.35, Nucleated RBC % 0 10/30/19 06:01: Magnesium 1.9, Total Bilirubin 0.20, Direct Bilirubin 0.13, AST 30, ALT 40, Alkaline Phosphatase 64, Total Protein 6.4, Albumin 3.2, Globulin 3.2 10/30/19 06:01: Phosphorus 4.5 10/30/19 08:40: Urine Opiates Screen NEGATIVE, Urine Methadone Screen NEGATIVE, Ur Barbiturates Screen NEGATIVE, Ur Phencyclidine Scrn NEGATIVE, Ur Amphetamines Screen NEGATIVE, U Methamphetamin-MDMA NEGATIVE, U Benzodiazepines Scrn POSITIVE H, Urine Cocaine Screen NEGATIVE, U Cannabinoids Screen POSITIVE H, Ur Drug Screen Comment Current Medications Carbamazepine (Tegretol) 400 mg PO BIDCM [facility] Last Admin: 10/30/19 17:36 Dose: Not Given Documented by: Enoxaparin Sodium (Lovenox) 40 mg SC DAILY [facility] Last Admin: 10/30/19 10:11 Dose: Not Given Documented by: Sodium Chloride () 250 mls @ 15 mls/hr IV .[id number] PRN PRN Reason: Saline Flush Potassium Chloride/Dextrose/Sod Cl () 1,000 mls @ 75 mls/hr IV .[id number] [facility] Last Infusion: 10/30/19 10:37 Dose: 75 mls/hr Documented by: Folic Acid 1 mg/ Sodium (Chloride) 50.2 mls @ 200 mls/hr IV DAILY YUMIKO Last Infusion: 10/30/19 05:11 Dose: Infused Documented by: Thiamine HCl 100 mg/ Sodium (Chloride) 51 mls @ 200 mls/hr IV DAILY [facility] Last Infusion: 10/30/19 05:30 Dose: Infused Documented by: Levetiracetam () 1,000 mg in 100 mls @ 400 mls/hr IV X1 ONE Stop: 10/30/19 17:30 Lorazepam (Ativan) 1 mg IV Q4H PRN PRN PRN Reason: seizure lasting > 1 minute Last Admin: 10/30/19 16:40 Dose: 1 mg Documented by: Lorazepam (Ativan) 1 mg IV X1 ONE Stop: 10/30/19 17:11 Midazolam HCl (Versed) 5 mg IV X1 ONE Stop: 10/30/19 17:17 Multivit/Ca Carb/B Cmplx/FA/Prenat (Nephrocaps, Renaphro) 1 capsule PO DAILY [facility] Last Admin: 10/30/19 10:08 Dose: 1 capsule Documented by: Ondansetron HCl (Zofran) 4 mg IV Q8H PRN PRN PRN Reason: NAUSEA/VOMITING Pantoprazole Sodium (Protonix) 40 mg PO DAILY [facility] Phenobarbital (Phenobarbital) 64.8 mg PO BID [facility] Last Admin: 10/30/19 14:49 Dose: 64.8 mg Documented by: Sodium Chloride () 10 - 40 ml IV UD PRN PRN Reason: SALINE FLUSH Last Admin: 10/30/19 04:39 Dose: 10 ml Documented by: Home Medications: Medications to take at Discharge Carbamazepine [Tegretol] 400 mg PO BID 10/30/19 Primary Care Physician: Care Physician,No Primary [Primary Care Provider] - Disposition: [facility] neuro intensive care unit Minutes spent on discharge:: 50 Patient Condition:: Guarded Medical Necessity - Tobacco Use Smoking Status: Current every day smoker Tobacco Use: Cigarettes, - - and marijuana Meaningful Use Info Meaningful Use Diagnoses (Choose all that apply): None applicable Inpatient E&M: 78246 Disch Hosp
== END 2019-10-30 18:30 | disposition left against medical advice (07) | DRG 101 ==
LOC: ED 03:13 → ICU 04:35
PROVIDERS: Admitting Provider Hospitalist; Emergency Provider Emergency Medicine; Visit Provider Internal Medicine
DX: G40.401 Other generalized epilepsy and epileptic syndromes, not intractable, with status epilepticus (principal); Q87.40 Marfan syndrome, unspecified; Z68.1 Body mass index [BMI] 19.9 or less, adult; F10.229 Alcohol dependence with intoxication, unspecified; F17.210 Nicotine dependence, cigarettes, uncomplicated; Y90.7 Blood alcohol level of 200-239 mg/100 ml; R63.6 Underweight
CPT/HCPCS: 70450; 80048; 80076; 80156; 80307; 80320; 82962; 83735; 84100; 85025; 99285; J7030; A4216; G0480; J2405; J3490

== ENCOUNTER 2019-11-01 20:44 | Emergency (ER) | payer SELFPAY ==
[2019-10-30 07:56] VITALS: BMI 17.6
[2019-11-01 20:44] VITALS: BP 113/88; PULSE 87; RESP 16; TEMP 36.7; O2SAT 96; BMI 23.6
--- NOTE | 2019-11-01 21:00 | CT_ITS ---
STUDY: CT BRAIN WITHOUT CONTRAST REASON FOR EXAM: Male, 44 years old. SEIZURES. Hx of Marfan''s RADIATION DOSAGE (If Supplied By Facility): CTDIvol = ( 44.99 ) mGy, DLP = ( 1614.72 ) mGycm TECHNIQUE: Transaxial CT imaging of the brain was performed without administration of intravenous contrast material. Individualized dose optimization techniques were used for this CT. COMPARISON: October 30, 2019 CT brain FINDINGS: Normal soft tissue structures. Normal calvarium. Normal size ventricles and extra-axial spaces for the patient''s age. Normal white matter tracts of the cerebral hemispheres. Normal basal ganglia and thalami. Normal brainstem. Normal cerebellum. There is no intracranial hemorrhage. There are no findings of an acute ischemic infarction. Median antrectomy right maxillary sinus. CT/Brain/Head without Contrast IMPRESSION: Normal unenhanced CT scan of the brain. Electronically Signed: Aman Ivey MD at 21:52 EDT , Service support ,
[2019-11-01] MEDS: LORazepam 2 MG/ML Syringe 1 MG IV (21:04)
--- NOTE | 2019-11-01 21:08 | ED.VIS.GEN ---
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 Patient was admitted here on the . He had multiple seizures on the floor. Plan was to transfer him to [place] where they could do continuous EEG monitoring. Patient ended up signing out AMA and leaving before that could be completed. Patient brought in by EMS secondary to seizures. When I saw the patient he was resting with his eyes closed. He proceeded to have a brief tonic-clonic seizure. - Past Medical History (1) Alcohol abuse Status: Chronic (2) Epilepsy Status: Chronic (3) Marfan's syndrome Status: Chronic Past Medical History - Allergies and Home Meds Allergies/Adverse Reactions: Allergies codeine Allergy (Verified 11/01/19 20:51) NEEDS FOLLOW-UP erythromycin base Allergy (Verified 11/01/19 20:51) NEEDS FOLLOW-UP phenytoin [From Dilantin] Allergy (Verified 11/01/19 20:51) NEEDS FOLLOW-UP Primary Care Physician: Care Physician,No Primary [Primary Care Provider] - Surgical History: noncontributory Smoking Status: Current every day smoker - Family History Maternal Family History: Reports: No pertinent history Paternal Family History: Reports: No pertinent history Review of Systems ROS: Unable to Obtain - Patient postictal not answering questions. Physical Exam Vital Signs/Narrative: Vital Signs Temp Pulse Resp BP Pulse Ox 11/01/19 20:44 98.0 F 87 16 113/88 H 96 Inital Vital Signs reviewed: Yes General: Well nourished, Well developed ENT: Moist mucous membranes Cardiovascular: Regular rate, Regular rhythm Respiratory: No distress, CTA bilaterally Abdomen: Soft, Nontender Neurological: - - Patient with tonic-clonic activity at the time of my exam. Head is turned to the left, right arm is flexed up against his chest. Diagnostic/Tx/Re-eval Impressions Brain CT 11/01/19 21:00 IMPRESSION: Normal unenhanced CT scan of the brain. Electronically Signed: Aman Ivey MD at 21:52 EDT , Service support , 11/01/19 21:00 Brain/Head without Contrast [CT] Stat Laboratory Results 0511/01/19 11/01/19 20:55 20:55 20:55 WBC 4.4 RBC 4.54 L Hgb 14.0 Hct 41.4 MCV 91.2 MCH 30.8 MCHC 33.8 RDW Std Deviation 47.5 H RDW Coeff of Evan 14.1 Plt Count 225 MPV 8.6 Immature Gran % (Auto) 0.200 Neut % (Auto) 54.8 Lymph % (Auto) 31.4 [place] % (Auto) 9.3 Eos % (Auto) 3.6 Baso % (Auto) 0.7 Absolute Neuts (auto) 2.4 Absolute Lymphs (auto) 1.38 Nucleated RBC % 0 Sodium 130 L Potassium 4.0 Chloride 97 L Carbon Dioxide 24.0 Anion Gap 9 BUN 6 L Creatinine 1.00 Estim Creat Clear Calc 116.94 Est GFR (MDRD) Af Amer 105 Est GFR (MDRD) Non-Af 87 BUN/Creatinine Ratio 6.0 L Glucose 98 Calcium 8.4 L Urine Opiates Screen Urine Methadone Screen Ur Barbiturates Screen Carbamazepine Ur Phencyclidine Scrn Ur Amphetamines Screen U Methamphetamin-MDMA U Benzodiazepines Scrn Urine Cocaine Screen U Cannabinoids Screen Ur Drug Screen Comment Ethyl Alcohol 223.0 11/01/19 11/01/19 20:55 21:10 WBC RBC Hgb Hct MCV MCH MCHC RDW Std Deviation RDW Coeff of Evan Plt Count MPV Immature Gran % (Auto) Neut % (Auto) Lymph % (Auto) [place] % (Auto) Eos % (Auto) Baso % (Auto) Absolute Neuts (auto) Absolute Lymphs (auto) Nucleated RBC % Sodium Potassium Chloride Carbon Dioxide Anion Gap BUN Creatinine Estim Creat Clear Calc Est GFR (MDRD) Af Amer Est GFR (MDRD) Non-Af BUN/Creatinine Ratio Glucose Calcium Urine Opiates Screen NEGATIVE Urine Methadone Screen NEGATIVE Ur Barbiturates Screen NEGATIVE Carbamazepine 6.2 Ur Phencyclidine Scrn NEGATIVE Ur Amphetamines Screen NEGATIVE U Methamphetamin-MDMA NEGATIVE U Benzodiazepines Scrn POSITIVE H Urine Cocaine Screen NEGATIVE U Cannabinoids Screen POSITIVE H Ur Drug Screen Comment Ethyl Alcohol - Medical Decision Making Patient was given 1 mg of Ativan here. I initially ordered Keppra, however the patient states that he is allergic. He was given Keppra when he was recently in the hospital, however he is adamantly refusing Keppra at this time and states that he will cisco the hospital if we give it to him. According to his discharge summary the neuro bike designer at [facility] had recommended giving him Depacon instead of Keppra. He is ordered Depacon at this time, 2500 mg. Patient does require continuous EEG to determine if these are true epileptiform seizures. Patient has been accepted in transfer to [facility]. Patient was accepted at [facility]. Susan arrived to transport the patient. I was advised by nursing staff that he is now awake and alert and refusing to be transferred. He is going to sign out AGAINST MEDICAL ADVICE. I presented to the room to ask him why. He states his neurologist are in [place] and he is going back to [place] where his doctors can take care of him. He was advised that he is heading back to [place] within the next 2 hours and has a friend that is going to drive him. He is adamant that he is leaving the hospital. His IV is pulled and he is leaving the hospital AMA. ED Disposition - Plan for ED Patient: Disposition: [facility] Diagnosis: Seizures Referrals: Care Physician,No Primary [Primary Care Provider] -
[2019-11-01 21:13] LABS: Absolute Lymphocyte Count 1.38 X10^3/uL (0.83-4.51); Absolute Neutrophil Count 2.4 X10^3/uL (2.0-7.7); Basophil# 0.03 X10^3/uL; Basophil% 0.7 % (0-1); Eosinophil# 0.16 X10^3/uL; Eosinophils% 3.6 % (0-5); Hematocrit 41.4 % (40-54); Lymphocyte # 1.38 X10^3/ul (4.0); Lymphocyte % 31.4 % (19-41); Mean Corp Hgb Conc 33.8 g/dL (32-36); Mean Corpuscular Hgb 30.8 pg (27.0-32.0); Mean Corpuscular Volume 91.2 fL (80-94); Mean Platelet Vol. 8.6 fl (6.2-12.0); Monocyte# 0.41 X10^3/uL; Monocyte% 9.3 % (0-10); NRBC Flagged by Analyzer 0 % (0-5); Neutrophil % 54.8 % (47-70); Platelet Count 225 K/mm3 (150-450); RBC Distribution Width CV 14.1 % (11.6-14.6); RBC Distribution Width SD 47.5 fl (35.1-43.9); Red Blood Count 4.54 M/mm3 (4.6-6.2); White Blood Count 4.4 K/mm3 (4.4-11.0)
[2019-11-01 21:21] LABS: Anion Gap 9 (5-15); BUN 6 mg/dL (7-18); Calcium,Total 8.4 mg/dL (8.5-10.1); Chloride 97 mmol/L (98-107); EST Glomerular Filtration Rate 87 mL/min (>60); Est Glom Filt Rate - Afr Amer 105 mL/min (>60); Estimated Creatinine Clearance 116.94 ml/min; Glucose 98 mg/dL (74-106); Sodium Level 130 mmol/L (136-145)
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
[2019-11-01 21:56] LABS: Amphetamine Urine VISTA NEGATIVE (<1000 ng/mL); Barbiturate Urine VISTA NEGATIVE (< 200 ng/mL); Benzodiazepine Urine VISTA POSITIVE (< 200 ng/mL); Cocaine Urine VISTA NEGATIVE (< 300 ng/mL); Ecstacy Urine VISTA NEGATIVE (< 500 ng/mL); Methadone Urine VISTA NEGATIVE (< 300 ng/mL); PCP Urine VISTA NEGATIVE (< 25 ng/mL); THC Urine VISTA POSITIVE (< 50 ng/mL); Vista UDS pH Range 6
[2019-11-01 22:04] VITALS: BP 100/66; PULSE 75; RESP 13; O2SAT 95
[2019-11-01 22:05] LABS: Carbamazepine (Tegretol) 6.2 ug/mL (4.0-12.0)
--- NOTE | 2019-11-01 23:33 | ED.RN ---
PT WAS STANDING AT THE DOORWAY OF HIS ROOM AND REQUESTED TO LEAVE, ELIOT CASTILLO RN AND DR. DEUTSCH AT BEDSIDE. PT WANTS TO LEAVE AMA. CAMRYN AT [facility] WAITING TO HEAR IF PT IS GOING TO BE TRANSPORTED TO [facility]. CHARGE NURSE, BULMARO ZHAO RN, INFORMED OF SAME.
--- NOTE | 2019-11-01 23:37 | ED.RN ---
PT AWAKE, STANDING AT DOOR OF ROOM, STATES GET THIS FUCKING THING OUT OF MY FOOT REFERRING TO IV IN RIGHT FOOT. PT ADAVISED TRANSPORT WAS HERE TO TRANSFER HIM TO [facility]. PT STATES HE IS LEAVING FOR [place] IN 2 HRS, FRIEND CLARICE IS PICKING HIM UP AT [facility]. PT STATES HE HAS PCP N KARRI, WILL FOLLOW UP WITH HIM. PT REFUSES TO SIGN AMA PAPERS, VOICES UNDERSTANDING WITH RISKS OF LEAVING AMA UP TO AND INCLUDING . IV REMOVED, PT DRESSED HIMSELF AND AMBULATED OUT OF DEPARTMENT WITH STEADY GAIT.
== END 2019-11-01 23:43 | disposition left against medical advice (07) ==
PROVIDERS: Emergency Provider Emergency Medicine
DX: R56.9 Unspecified convulsions (principal); F17.200 Nicotine dependence, unspecified, uncomplicated
CPT/HCPCS: 70450; 80048; 80156; 80307; 80320; 85025; 99285; J7030; A4216; G0480

== ENCOUNTER 2019-11-03 16:22 | Emergency (ER) | payer SELFPAY ==
[2019-11-03 16:23] VITALS: BP 129/78; PULSE 107; RESP 13; TEMP 36.9; O2SAT 94; BMI 17.6
[2019-11-03 16:31] VITALS: BP 129/78; PULSE 105; RESP 16; O2SAT 93
--- NOTE | 2019-11-03 16:35 | ED.DCSUM_ITS ---
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 Reportedly there was about 3 seizures within 5 minutes. EMS states that they also witnessed a seizure and administered 2.5 mg of Versed nasally which stopped his seizure. The patient's recent ED visits and hospitalizations to this institution were reviewed. In brief the patient was admitted to the ICU with status and it was recommended that the patient be transferred to tertiary care facility signed out AMA. He came back to the emergency department and was recommended to be transferred to tertiary care facility and he again wanted to leave stating he is going back to [place]. Reported history of alcohol abuse as well as cannabinoid use. Past Medical History - Allergies and Home Meds Allergies/Adverse Reactions: Allergies codeine Allergy (Verified 11/03/19 16:34) NEEDS FOLLOW-UP erythromycin base Allergy (Verified 11/03/19 16:34) NEEDS FOLLOW-UP phenytoin [From Dilantin] Allergy (Verified 11/03/19 16:34) NEEDS FOLLOW-UP Primary Care Physician: Care Physician,No Primary [Primary Care Provider] - Surgical History: noncontributory Smoking Status: Current every day smoker - Family History Maternal Family History: Reports: No pertinent history Paternal Family History: Reports: No pertinent history Review of Systems ROS: Unable to Obtain Neurological: Reports: - Physical Exam Vital Signs/Narrative: Vital Signs Temp Pulse Resp BP Pulse Ox 11/03/19 16:31 105 H 16 129/78 H 93 11/03/19 16:23 98.4 F 107 H 13 129/78 H 94 Inital Vital Signs reviewed: Yes General: Well nourished, Well developed, No Acute Distress Head: Normocephalic, Atraumatic Eyes: Perrl, EOMI ENT: Moist mucous membranes, No rhinorrhea Neck: Supple, Nontender Cardiovascular: Regular rate, Regular rhythm, No murmurs Respiratory: No distress, CTA bilaterally, Chest nontender Abdomen: Soft, Nontender, Nondistended, Normal bowel sounds Back: Nontender, Normal Inspection Extremities: Nontender, No edema Skin: Normal color, No rash Neurological: - - Patient is postictal Diagnostic/Tx/Re-eval - Medical Decision Making Patient was allowed to rest and is now ANO x3. He states that yesterday he got very drunk and forgot to take some of his Tegretol. He did take it before bedtime and this morning he states. But he states that when he gets drunk he has seizures. He states he is on a waiting list now to go back to [place] to see neurology. I advised him that there are neurologist in [place] and [facility] that could see him and he states that he would be interested in that. ED Disposition - Plan for ED Patient: Disposition: Home or Assisted Living Diagnosis: Epileptic seizure, generalized Instructions: ED Seizure Recurrent Adult Referrals: Care Physician,No Primary [Primary Care Provider] - Additional Instructions: [facility] are a group of neurologist in [place]. Their address is [facility] [address] [facility] and [place]. Their phone number is [phone] I strongly urged you to establish a neurologist as mentioned to you on all of your previous visits that it is important for you to have one that can help you with your recurrent seizures.
[2019-11-03 16:54] VITALS: BP 129/78; PULSE 107; RESP 19; O2SAT 94
--- NOTE | 2019-11-03 17:04 | ED.RN ---
pt received 2.5 of versed intranasally per ems. pt continues to have seizure activity lasting 2-5 minutes each time, pt vital signs remain stable. pt is currently post-ictal. MD aware, no new orders at this time will continue to monitor the pt. pt is resting in a position of comfort in a right lateral position head of bead elevated to 30degrees.
[2019-11-03 17:22] VITALS: BP 108/59; PULSE 86; RESP 16; O2SAT 95
[2019-11-03 18:06] VITALS: BP 108/59; PULSE 86; RESP 16; O2SAT 96
--- NOTE | 2019-11-03 18:07 | ED.RN ---
PT IS AWAKE AND AXO X4, PT IS WALKING AROUND THE ROOM AND REFUSES TO GET BACK IN BED. THIS NURSE EDUCATED THE PT ABOUT HIS SAFETY OF WALKING AROUND BY HIMSELF WHILE ON SEIZURE PRECAUTIONS. PT STATES I'M GETTING OUT OF HERE GET THIS IF OUT OF ME. MADE AWARE. MD TO SEE PT. THIS NURSE WILL CONTINUE TO MONITOR THE PT.
[2019-11-03 18:12] VITALS: BP 108/59; PULSE 86; RESP 17; O2SAT 96
--- NOTE | 2019-11-03 18:13 | ED.RN ---
PT STATED TO THIS NURSE AND MD I WENT TO A [place] AND DRANK WAY TO MUCH LAST NIGHT AND I KNOW I'M NOT SUPPOSED TO DRINK ON MY MEDS. I AM GOING TO BE FINE I'M TAKING MY MEDS, I'M GOOD TO GO HOME. I'M NOT STAYING.
--- NOTE | 2019-11-03 18:17 | DCINST.ED_ITS ---
ED Disposition - Plan for ED Patient: Disposition: Home or Assisted Living Diagnosis: Epileptic seizure, generalized Instructions: ED Seizure Recurrent Adult Referrals: Care Physician,No Primary [Primary Care Provider] - Additional Instructions: [facility] are a group of neurologist in [place]. Their address is [facility] [address] [place] [address] and [place]. Their phone number is [phone] I strongly urged you to establish a neurologist as mentioned to you on all of your previous visits that it is important for you to have one that can help you with your recurrent seizures.
== END 2019-11-03 18:26 | disposition home or self-care (01) ==
LOC: ED 18:11
PROVIDERS: Emergency Provider Emergency Medicine
DX: G40.409 Other generalized epilepsy and epileptic syndromes, not intractable, without status epilepticus (principal); F17.200 Nicotine dependence, unspecified, uncomplicated
CPT/HCPCS: 99285; A4216

== ENCOUNTER 2019-11-04 00:24 | Emergency (ER) | payer SELFPAY ==
[2019-11-03 16:23] VITALS: BMI 17.6
[2019-11-04 00:24] VITALS: BP 135/81; BP 141/83; PULSE 95; PULSE 97; RESP 15; RESP 16; TEMP 36.7; O2SAT 97; O2SAT 98; BMI 18.0
--- NOTE | 2019-11-04 00:32 | EKG12_ITS ---
Test Reason : DYSRHYTHMIA Blood Pressure : / mmHG Vent. Rate : 093 BPM Atrial Rate : 093 BPM P-R Int : 176 ms QRS Dur : 110 ms QT Int : 350 ms P-R-T Axes : 069 -58 057 degrees QTc Int : 435 ms Normal sinus rhythm Left anterior fascicular block Abnormal ECG Confirmed by NANDA HOROWITZ, AKI ([id number]), supervising film or videotape editor MAYRCRUZ HERNANDEZ ([id number]) on 11/05/2019 10:44:03 AM Referred By: RU Confirmed By:AKI VEE MD
[2019-11-04 01:00] LABS: Absolute Lymphocyte Count 1.61 X10^3/uL (0.83-4.51); Absolute Neutrophil Count 3.4 X10^3/uL (2.0-7.7); Basophil# 0.04 X10^3/uL; Basophil% 0.7 % (0-1); Eosinophil# 0.22 X10^3/uL; Eosinophils% 3.7 % (0-5); Hematocrit 40.6 % (40-54); Hemoglobin 13.9 g/dL (13.0-16.5); Lymphocyte # 1.61 X10^3/ul (4.0); Lymphocyte % 27.3 % (19-41); Mean Corp Hgb Conc 34.2 g/dL (32-36); Mean Corpuscular Hgb 30.5 pg (27.0-32.0); Mean Platelet Vol. 8.4 fl (6.2-12.0); Monocyte# 0.57 X10^3/uL; Monocyte% 9.7 % (0-10); NRBC Flagged by Analyzer 0 % (0-5); Neutrophil # 3.44 X10^3/uL (2.7-7.7); Neutrophil % 58.4 % (47-70); Platelet Count 227 K/mm3 (150-450); RBC Distribution Width SD 45.1 fl (35.1-43.9); Red Blood Count 4.56 M/mm3 (4.6-6.2); White Blood Count 5.9 K/mm3 (4.4-11.0)
[2019-11-04] MEDS: 0.9% Normal Saline 1,000 ML 150 ML IV (01:04)
--- NOTE | 2019-11-04 01:17 | ED.RN ---
attempted to give pt aspirin, will not wake up, snoring respirations. did flutter his eyelids but would not wake up. VSS.
[2019-11-04 01:18] LABS: ALB/GLOB Ratio 0.9 RATIO (0.9-2.4); AST(SGOT) 30 U/L (15-37); Alanine Aminotransfer ALT/SGPT 36 U/L (16-61); Albumin, Serum 3.6 g/dL (3.2-5.0); Alkaline Phosphatase 75 U/L (45-117); Anion Gap 8 (5-15); BUN 9 mg/dL (7-18); BUN/Creat Ratio 8.7 RATIO (10-20); Calcium,Total 9.1 mg/dL (8.5-10.1); Chloride 100 mmol/L (98-107); Creatinine, Serum 1.04 mg/dL (0.70-1.30); EST Glomerular Filtration Rate 83 mL/min (>60); Est Glom Filt Rate - Afr Amer 100 mL/min (>60); Globulin 3.8 g/dL (2.2-4.2); Glucose 108 mg/dL (74-106); Potassium 3.9 mmol/L (3.5-5.1); Protein, Total 7.4 g/dL (6.4-8.2); Sodium Level 135 mmol/L (136-145)
[2019-11-04 02:55] VITALS: BP 122/81; PULSE 75; RESP 12; O2SAT 98
--- NOTE | 2019-11-04 02:56 | ED.RN ---
0230 LAB CALLED FOR PENDING LAB RESULTS.
[2019-11-04 03:01] LABS: Carbamazepine (Tegretol) 7.8 ug/mL (4.0-12.0)
--- NOTE | 2019-11-04 03:14 | ED.VISSUMM ---
- ER Visit Summary Date of Service: 11/04/19 Chief Complaint: [Seizure] History of Present Illness: The patient is a 44 M [presents the emergency department with seizures started this evening. Patient was at days in a hotel this evening and apparently had a seizure. Patient's brother apparently called EMS. Is unclear how long the seizure lasted. Patient has known history of seizures. Patient's had multiple visits to this emergency department for same. Patient had recent admission for status epilepticus and had neurology consultation with recommendation of adding Keppra to his regimen but patient states that he is allergic to Keppra. Patient states he can take a lot of the seizure meds that is why he is on carbamazepine. Patient states that he plans on going back to [place] in 3 days. Patient has signed out AMA multiple times and has refused transfer to tertiary care center. On arrival patient states that he had some chest discomfort this evening kind of radiated to his back. Patient tells me that he had a heart attack 3 years ago but cannot tell me if he ever had a stent or any type of intervention. Denies any recent illness. Patient states that he has been compliant with his medications. Patient does drink occasionally and had 2 beers this evening. He is a smoker. He admits to occasional marijuana usage.] Physical Examination: [HEENT-PERRLA, EOMI. Cranial nerves II through XII grossly intact. TMs clear. Mucous membranes moist. No adenopathy. Cardiovascular-regular rate and rhythm without murmur or ectopy Lungs-clear to auscultation, chest wall stable without crepitus or subcu emphysema Abdomen-normoactive bowel sounds, soft, nontender, no rebound or rigidity, no peritoneal signs. Neuro abxv-[id number] and heel rodriguez testing within normal limits, negative Romberg, negative pronator, fundi benign Extremities-intact ?4, normal range of motion, normal pulses, atraumatic] Test Results: [CBC with differential obtained was unremarkable. EKG obtained on arrival shows sinus rhythm with a ventricular rate of 93 bpm with a left anterior fascicular block noted. Chemistries unremarkable. Troponin less than 0.015. Alcohol was only 4. Carbamazepine level was 7.8. Patient has had multiple recent CT scans of the brain without contrast that have been unremarkable.] Emergency Department Course and Treatment: [IV line was established. Patient placed on diagnostic cardiac sonographer. Patient was given aspirin on arrival.] Treatment Plan: [I discussed with patient options for admission to monitor him for further seizures and also to monitor cardiac status with repeat enzymes and possibly further evaluation with stress testing. I am not convinced patient is having an acute coronary syndrome. Patient is refusing admission at this time and states that he wants to go home. He understands my concerns that he could continue to seize. Patient is chest pain-free currently.] Disposition: [Discharged home in stable condition. Patient advised to return if worsening chest pain, increasing shortness of breath, or condition should worsen anyway.] Impression: [Recurrent seizure Chest pain-etiology uncertain] This note was generated with [employer] dictation software. It may contain incorrect words, spelling, and punctuation that were not noted in review of the chart prior to signing ED Disposition - Plan for ED Patient: Referrals: Care Physician,No Primary [Primary Care Provider] -
--- NOTE | 2019-11-04 03:19 | ED.DEP ---
ED Disposition - Plan for ED Patient: Instructions: ED Seizure Recurrent Adult, ED Chest Pain Atypical Unkn Cause Referrals: Care Physician,No Primary [Primary Care Provider] - Barber Barakat MD [STAFF PHYSICIAN] - 3-5 Days Additional Instructions: establish with Neurology to further manage your seizure disorder
== END 2019-11-04 03:27 | disposition home or self-care (01) ==
PROVIDERS: Emergency Provider Emergency Medicine
DX: G40.909 Epilepsy, unspecified, not intractable, without status epilepticus (principal); R07.89 Other chest pain; F17.200 Nicotine dependence, unspecified, uncomplicated
CPT/HCPCS: 80053; 80156; 80320; 84484; 85025; 93005; 96360; 96361; 99285; J7030; A4216; G0480

== ENCOUNTER 2019-11-06 19:35 | Emergency (ER) | payer SELFPAY ==
[2019-11-06 19:36] VITALS: BP 115/89; PULSE 81; RESP 22; TEMP 36.6; O2SAT 96; BMI 24.4
--- NOTE | 2019-11-06 19:49 | CT_ITS ---
STUDY: CT BRAIN WITHOUT CONTRAST REASON FOR EXAM: Male, 44 years old. Seizure RADIATION DOSAGE (If Supplied By Facility): CTDIvol = ( 44.99 ) mGy, DLP = ( 863.60 ) mGycm TECHNIQUE: Transaxial CT imaging of the brain was performed without administration of intravenous contrast material. Individualized dose optimization techniques were used for this CT. COMPARISON: 11/01/2019 FINDINGS: There is no acute bleed or infarct. There are normal white matter tracts. The ventricles are normal in configuration. There is no hydrocephalus. The visualized paranasal sinuses are clear. The mastoid air cells are well aerated. There is no skull fracture. CT/Brain/Head without Contrast IMPRESSION: No acute intracranial abnormality. Electronically Signed: Yared Riggs, at 20:45 EDT Tel , Service support ,
[2019-11-06 19:50] VITALS: BP 142/85; PULSE 78; RESP 18; O2SAT 95
[2019-11-06] MEDS: 0.9% Normal Saline 1,000 ML 1000 ML IV (19:51)
[2019-11-06] MEDS: LORazepam 2 MG/ML Syringe IV (19:52)
[2019-11-06 20:00] LABS: Absolute Neutrophil Count 3.3 X10^3/uL (2.0-7.7); Basophil# 0.02 X10^3/uL; Basophil% 0.4 % (0-1); Eosinophil# 0.14 X10^3/uL; Eosinophils% 2.7 % (0-5); Hematocrit 39.2 % (40-54); Hemoglobin 13.5 g/dL (13.0-16.5); Lymphocyte % 23.5 % (19-41); Mean Corp Hgb Conc 34.4 g/dL (32-36); Mean Corpuscular Hgb 30.5 pg (27.0-32.0); Mean Corpuscular Volume 88.5 fL (80-94); Mean Platelet Vol. 8.7 fl (6.2-12.0); Monocyte# 0.46 X10^3/uL; NRBC Flagged by Analyzer 0 % (0-5); Neutrophil # 3.27 X10^3/uL (2.7-7.7); Neutrophil % 64.2 % (47-70); Platelet Count 234 K/mm3 (150-450); RBC Distribution Width CV 13.3 % (11.6-14.6); Red Blood Count 4.43 M/mm3 (4.6-6.2); White Blood Count 5.1 K/mm3 (4.4-11.0)
--- NOTE | 2019-11-06 20:14 | ED.VISSUMM ---
- ER Visit Summary Date of Service: 11/06/19 Chief Complaint: Seizure History of Present Illness: The patient is a 44 M presenting after seizure. Patient was found on the ground by bystanders seizing. EMS was called. On their arrival he was awake and talking and states he has a history of seizures. On arrival to the ED patient had another seizure. Physical Examination: Vitals are stable. Patient is afebrile. Alert no acute distress. HEENT exam is unremarkable. Neck is supple. Lungs are clear and equal bilaterally. Heart is regular rate and rhythm. Abdomen is soft nontender nondistended. Extremities are unremarkable. Skin is warm and dry. No focal neurologic deficit. Post ictal. Opens eyes to voice Remainder of exam is unremarkable. Emergency Department Course and Treatment: Patient was given Ativan IV. CT head shows no acute intracranial abnormality. CBC, chemistries unremarkable other than sodium 127. Carbamazepine level 11.1. Alcohol 12.0. Patient was given Depacon and thiamine IV. On multiple re-evaluations patient does awaken to voice. He continues to protect his airway. Previous records were reviewed. Patient has had multiple episodes of status epilepticus and due to lack of neurology coverage it has been advised that he is not admitted to this hospital. He has required transfer to tertiary care centers in the past. He last went to [facility] in October. They currently have no beds available. Discussed with [facility] for transfer. Disposition: Transfer [facility] Impression: Multiple seizures, history of seizure disorder, history of alcohol abuse This note was generated with [employer] dictation software. It may contain incorrect words, spelling, and punctuation that were not noted in review of the chart prior to signing ED Disposition - Plan for ED Patient: Referrals: Care Physician,No Primary [Primary Care Provider] -
[2019-11-06 20:30] VITALS: BP 120/77; PULSE 68; RESP 12; O2SAT 94
[2019-11-06 20:33] LABS: Anion Gap 8 (5-15); BUN 5 mg/dL (7-18); BUN/Creat Ratio 6.5 RATIO (10-20); Calcium,Total 8.7 mg/dL (8.5-10.1); Chloride 95 mmol/L (98-107); Creatinine, Serum 0.77 mg/dL (0.70-1.30); EST Glomerular Filtration Rate 117 mL/min (>60); Est Glom Filt Rate - Afr Amer 141 mL/min (>60); Estimated Creatinine Clearance 143.82 ml/min; Glucose 86 mg/dL (74-106); Potassium 3.7 mmol/L (3.5-5.1); Sodium Level 127 mmol/L (136-145)
[2019-11-06 20:39] LABS: Carbamazepine (Tegretol) 11.1 ug/mL (4.0-12.0)
[2019-11-06 21:35] VITALS: BP 110/64; PULSE 67; RESP 12; O2SAT 95
--- NOTE | 2019-11-06 22:59 | ED.RN ---
Patient called stating his IV was leaking. When this RN got back to the room the patient had taken IV out and states he is leaving. Pt explained the risk of leaving when he needs to be transferred to a high level of care and to see a neurologist. Dr Mitchell called to bedside. She explains the risks. Pt gets up and walks out. Refuses to sign AMA paper.
[2019-11-06 23:10] VITALS: BP 110/64; PULSE 67; RESP 12; O2SAT 95
== END 2019-11-06 23:00 | disposition home or self-care (01) ==
LOC: ED 20:30
PROVIDERS: Emergency Provider Emergency Medicine
DX: G40.909 Epilepsy, unspecified, not intractable, without status epilepticus (principal)
CPT/HCPCS: 70450; 80048; 80156; 80320; 85025; 99285; G0480; J3490

== ENCOUNTER 2019-11-08 11:20 | Emergency (ER) | payer SELFPAY ==
[2019-11-08 11:21] VITALS: BP 149/96; PULSE 97; RESP 18; TEMP 37.1; O2SAT 93; BMI 17.8
--- NOTE | 2019-11-08 11:25 | CT_ITS ---
STUDY: CT BRAIN WITHOUT CONTRAST REASON FOR EXAM: Male, 44 years old. SEIZURE, HX-EPILEPSY, ETOH ABUSE -- PT WILL NOT QUIT SEIZING, REPEATED SCAN BUT IMAGE QUALITY STILL POOR D/T PT MOTION RADIATION DOSAGE (If Supplied By Facility): CTDIvol = ( 44.99 ) mGy, DLP = ( 1794.69 ) mGycm TECHNIQUE: Transaxial CT imaging of the brain was performed without administration of intravenous contrast material. Individualized dose optimization techniques were used for this CT. COMPARISON: November 06, 2019 FINDINGS: Motion artifact limiting some images. Normal size ventricles and extra-axial spaces for the patient''s age. Normal white matter tracts of the cerebral hemispheres. Normal basal ganglia and thalami. Normal brainstem. Normal cerebellum. There is no intracranial hemorrhage. There are no findings of an acute ischemic infarction. Mild mucosal thickening of the visualized paranasal sinuses. CT/Brain/Head without Contrast IMPRESSION: Limited unenhanced CT scan of the brain due to motion. No significant intracranial pathology. Mild paranasal sinus mucosal thickening. Electronically Signed: Rohit Luciano DO at 14:14 EDT Tel [phone], Service support ,
[2019-11-08] MEDS: LORazepam 2 MG/ML Syringe 1 MG IV ×3 (11:33→13:33)
[2019-11-08] MEDS: 0.9% Normal Saline 1,000 ML 1000 ML IV (11:33)
[2019-11-08 11:38] LABS: Absolute Lymphocyte Count 0.97 X10^3/uL (0.83-4.51); Absolute Neutrophil Count 3.8 X10^3/uL (2.0-7.7); Basophil# 0.02 X10^3/uL; Basophil% 0.4 % (0-1); Eosinophil# 0.12 X10^3/uL; Eosinophils% 2.2 % (0-5); Hemoglobin 13.7 g/dL (13.0-16.5); Lymphocyte # 0.97 X10^3/ul (4.0); Lymphocyte % 18.1 % (19-41); Mean Corp Hgb Conc 34.3 g/dL (32-36); Mean Corpuscular Hgb 30.6 pg (27.0-32.0); Mean Corpuscular Volume 89.5 fL (80-94); Mean Platelet Vol. 8.5 fl (6.2-12.0); Monocyte% 7.5 % (0-10); NRBC Flagged by Analyzer 0 % (0-5); Neutrophil # 3.84 X10^3/uL (2.7-7.7); Neutrophil % 71.6 % (47-70); Platelet Count 243 K/mm3 (150-450); RBC Distribution Width SD 45.5 fl (35.1-43.9); Red Blood Count 4.47 M/mm3 (4.6-6.2); White Blood Count 5.4 K/mm3 (4.4-11.0)
--- NOTE | 2019-11-08 11:40 | ED.RN ---
pt stated the room is starting to spin and started having a seizure again. notified MD and another 1 mg ativan IV ordered and given.
[2019-11-08] MEDS: Ondansetron 4 MG/2 ML Vial IV (11:42)
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
[2019-11-08] MEDS: Phenobarbital Sodium 130 MG/ML Vial 100 MG IV (11:52)
[2019-11-08 11:54] VITALS: BP 141/91; PULSE 86; RESP 14; O2SAT 96
[2019-11-08 11:54] LABS: ALB/GLOB Ratio 0.9 RATIO (0.9-2.4); AST(SGOT) 26 U/L (15-37); Alanine Aminotransfer ALT/SGPT 30 U/L (16-61); Albumin, Serum 3.6 g/dL (3.2-5.0); Alkaline Phosphatase 69 U/L (45-117); Anion Gap 10 (5-15); BUN 6 mg/dL (7-18); BUN/Creat Ratio 6.6 RATIO (10-20); Calcium,Total 8.9 mg/dL (8.5-10.1); Chloride 99 mmol/L (98-107); Creatinine, Serum 0.91 mg/dL (0.70-1.30); EST Glomerular Filtration Rate 97 mL/min (>60); Est Glom Filt Rate - Afr Amer 117 mL/min (>60); Estimated Creatinine Clearance 125.99 ml/min; Globulin 3.8 g/dL (2.2-4.2); Glucose 94 mg/dL (74-106); Potassium 4.2 mmol/L (3.5-5.1); Protein, Total 7.4 g/dL (6.4-8.2); Sodium Level 132 mmol/L (136-145)
--- NOTE | 2019-11-08 12:05 | ED.RN ---
continues to seize after ativan and phenobarbital given- see MAR. new orders entered by . awaiting pharmacy for Krystle. seizure pads in place.
[2019-11-08 12:13] VITALS: BP 137/99; PULSE 76; RESP 13; TEMP 37.1; O2SAT 97
--- NOTE | 2019-11-08 12:14 | ED.RN ---
see correction to triage vital signs
[2019-11-08 12:21] LABS: Carbamazepine (Tegretol) 8.8 ug/mL (4.0-12.0)
[2019-11-08] MEDS: levETIRAcetam IV 1,000 MG/100 ML BAG 400 MG IV (12:33)
[2019-11-08 13:08] LABS: Bacteria 0 SEEN /hpf (None Seen); Mucous, Urine 0 SEEN /hpf (<or=2+); Red Blood Cells-Urine 0 SEEN /hpf (0-5); Squamous Epithelial Cells - UA 0 SEEN /hpf (0-5); White Blood Cells 0 SEEN /hpf (0-5)
[2019-11-08 13:09] LABS: Color, Urine Yellow (Yellow); Glucose, Dipstick Normal (Normal); Ketone-Dipstick Negative (Negative); Leukocyte Esterase-Dipstick Negative /ul (Negative); Nitrite-Dipstick Negative (Negative); Occult Blood-Urine Negative /ul (Negative); Protein-Dipstick Negative (Negative); Urine Bilirubin Dipstick Negative (Negative); Urine Clarity Clear (Clear); Urine Urobilinogen Normal (Normal)
[2019-11-08 13:27] LABS: Amphetamine Urine VISTA NEGATIVE (<1000 ng/mL); Barbiturate Urine VISTA POSITIVE (< 200 ng/mL); Benzodiazepine Urine VISTA NEGATIVE (< 200 ng/mL); Cocaine Urine VISTA NEGATIVE (< 300 ng/mL); Ecstacy Urine VISTA NEGATIVE (< 500 ng/mL); Methadone Urine VISTA NEGATIVE (< 300 ng/mL); PCP Urine VISTA NEGATIVE (< 25 ng/mL); THC Urine VISTA POSITIVE (< 50 ng/mL); Vista UDS pH Range 7
[2019-11-08 13:34] VITALS: BP 140/97; PULSE 72; RESP 12; O2SAT 97
[2019-11-08] MEDS: Phenobarbital Sodium 130 MG/ML Vial IV (13:59)
[2019-11-08 14:23] VITALS: BP 98/48; PULSE 64; RESP 12; O2SAT 96
--- NOTE | 2019-11-08 14:57 | ED.RN ---
Addendum entered by Gregoria Clemens 11/08/19 14:59: friend, not brother. Original Note: spoke with brother on phone for update.
[2019-11-08 15:38] VITALS: BP 101/63; PULSE 62; RESP 12; O2SAT 95
== END 2019-11-08 16:12 | disposition short-term general hospital (02) ==
PROVIDERS: Emergency Provider Emergency Medicine
DX: G40.901 Epilepsy, unspecified, not intractable, with status epilepticus (principal); F10.10 Alcohol abuse, uncomplicated; Q87.40 Marfan syndrome, unspecified
CPT/HCPCS: 36415; 70450; 80053; 80156; 80307; 80320; 81001; 85025; 96374; 96376; 99285; J7030; A4216; G0480; J2405

== ENCOUNTER 2019-11-09 23:04 | Observation (INO) | payer SELFPAY ==
[2019-11-08 11:21] VITALS: BMI 17.8
[2019-11-09 23:05] VITALS: BP 126/72; PULSE 90; RESP 18; TEMP 36.6; O2SAT 93; BMI 22.7
--- NOTE | 2019-11-09 23:43 | ED.RN ---
Brother Joseluis stopped by briefly, states his number is listed and to call if we need.
--- NOTE | 2019-11-09 23:48 | ED.DCSUM_ITS ---
- ER Visit Summary Date of Service: 11/09/19 Chief Complaint: Alcohol intoxication and reported intentional overdose of lisinopril and possibly other meds. History of Present Illness: The patient is a 44 M Hx of seizure disorder and prior status epilepticus. Also history of alcohol and marijuana abuse. Patient is originally from [place] has been down here for approximately a month. Reportedly tonight per his brother states he was drinking heavily. He also took a handful of his medications about 1 hour ago. Brother thinks 1 of those meds was lisinopril. States that the patient did text his girlfriend and stated he wants to kill himself. Patient is a very difficult informant at this time. He is obviously intoxicated. His history is limited and his accuracy is limited. He has also not very forthcoming with information nor that cooperative. Physical Examination: Middle-aged male vital signs are stable and afebrile. He appears intoxicated. He smells of alcohol. He is slurring speech. HEENT exam pupils round reactive light. There is no signs of trauma to his face or scalp. Nontender. No hematomas. Neck nontender no lymphadenopathy. Lungs clear to auscultation bilaterally. Heart regular rhythm rate about 90 no murmur. Chest wall nontender. No signs of trauma. Abdomen soft nontender normal bowel sounds no peritoneal signs. Extremities moves all 4. Nontender. No edema. No deformities. Back nontender no bruising. Neurologically he is acutely intoxicated. He is slurring his speech. He is attempting to answer questions. He does follow limited commands. He is arousable. Test Results: CBC showed a white count of 6. Hemoglobin of 12. No bands. Electrolytes sodium 133. Patient typically has a low sodium. Potassium of 3.1. Normal BUN and creatinine and gap. Alcohol level elevated to 26. Tox screen also ordered but not obtained. Emergency Department Course and Treatment: I spoke to the patient's brother. He will go through an ED mental health evaluation. Labs to be obtained. He will be treated for acute overdose. Charcoal risk and benefits at this time I think the risks outweigh the benefits due to the concern for aspiration due to his intoxication. So for that reason the charcoal will be held. He will need medical ICU admission for the overdose and close observation overnight. He may also need transfer to a psychiatric facility once he can be further interviewed after his intoxication wears off. Treatment Plan: I was going to reevaluate the patient and admit him. He left prior to discharge. I was unaware of this till the patient was out of the building. I was seeing other patients at the time. Nurses initially tried to stop the patient he was not cooperative. Patient is quite imposing and around 7 feet tall. The hospital security followed the patient outside and was unable to restrain him. The patient walked down the street. The police have been notified they are currently searching for the patient but have not found him as of yet. Disposition: Patient eloped and would not stay even with intervention of hospital security and nursing staff. We called patient's brother and the patient was in the backseat of his car. Reportedly passed out. Patient was brought back in and is now accompanied by police. He will be placed in four-point restraints. His exam otherwise is unknown changed. He still uncooperative and intoxicated. I will speak to the hospitalist about admission to be monitored overnight and then psychiatric evaluation later today once medically cleared. Impression: Acute suicidal ideation with attempted overdose of uncertain medications Overdose on lisinopril reportedly Acute alcohol intoxication History of seizure disorder with prior status epilepticus Patient eloped but returned at 3:00 AM This note was generated with [employer] dictation software. It may contain incorrect words, spelling, and punctuation that were not noted in review of the chart prior to signing ED Disposition - Plan for ED Patient: Disposition: Against Medical Advice Referrals: Care Physician,No Primary [Primary Care Provider] -
[2019-11-09 23:56] LABS: Absolute Neutrophil Count 4.3 X10^3/uL (2.0-7.7); Basophil# 0.03 X10^3/uL; Basophil% 0.5 % (0-1); Eosinophil# 0.13 X10^3/uL; Eosinophils% 2.1 % (0-5); Hematocrit 38.3 % (40-54); Hemoglobin 12.9 g/dL (13.0-16.5); Lymphocyte % 22.1 % (19-41); Mean Corp Hgb Conc 33.7 g/dL (32-36); Mean Corpuscular Hgb 30.4 pg (27.0-32.0); Mean Corpuscular Volume 90.1 fL (80-94); Mean Platelet Vol. 8.9 fl (6.2-12.0); Monocyte# 0.49 X10^3/uL; Monocyte% 7.7 % (0-10); NRBC Flagged by Analyzer 0 % (0-5); Neutrophil # 4.27 X10^3/uL (2.7-7.7); Neutrophil % 67.3 % (47-70); Platelet Count 244 K/mm3 (150-450); RBC Distribution Width SD 46.2 fl (35.1-43.9); Red Blood Count 4.25 M/mm3 (4.6-6.2); White Blood Count 6.3 K/mm3 (4.4-11.0)
[2019-11-10] VITALS (29 sets, daily range): BP systolic 86–142; BP diastolic 50–90; PULSE 60–90; RESP 8–20; TEMP 36.2–37.1; O2SAT 97–100; BMI 17.7; BMI 22.7
[2019-11-10 00:03] LABS: Anion Gap 11 (5-15); BUN 3 mg/dL (7-18); BUN/Creat Ratio 3.7 RATIO (10-20); Chloride 99 mmol/L (98-107); Creatinine, Serum 0.81 mg/dL (0.70-1.30); EST Glomerular Filtration Rate 110 mL/min (>60); Est Glom Filt Rate - Afr Amer 133 mL/min (>60); Estimated Creatinine Clearance 144.54 ml/min; Glucose 75 mg/dL (74-106); Potassium 3.1 mmol/L (3.5-5.1); Sodium Level 133 mmol/L (136-145)
--- NOTE | 2019-11-10 00:10 | ED.RN ---
Returned from floor with another patient and noticed this patient out of bed on monitor. Came into room, pt had smoked an entire cigarette and probably urinated over the entire floor. Attempted to get patient back into bed. PT stated his ride was coming and we couldn't keep him here under false statements. Called for help. PT left the hospital with scudding inspector. Police have been called.
--- NOTE | 2019-11-10 01:32 | ED.RN ---
Dr. Aldrich was made aware of events as they happened. Police have still not returned with patient. Dr. Aldrich was updated again. Care to resume IF patient is brought back in police escort.
--- NOTE | 2019-11-10 02:31 | ED.RN ---
Called Joseluis, PTs brother, to update on pts elopement. Joseluis states pt is in brothers car passed out in passenger seat. Advised Joseluis to call 911 to have him removed from vehicle and brought to ED. Updated Joseluis on POC once pt returns to ED to include restraints and [facility] evaluation. Informed Joseluis that it would hours until we would know something else. Joseluis states pt took a handful of lisinopril in a suicidal gesture along with texting his girlfriend suicidal ideation.
--- NOTE | 2019-11-10 03:20 | HP.PCM_ITS ---
Problem List (1) Polypharmacy Status: Acute (2) Intentional overdose of drug in tablet form Status: Acute (3) Alcohol abuse Status: Acute (4) Marfan's syndrome Status: Chronic (5) Epilepsy Status: Chronic (6) Alcohol intoxication Status: Acute History of Present Illness Date of Admission: 11/10/19 Chief Complaint: intentional overdose The patient is a 44 year old male patient who moved to [place] recently from [place] who has visited the emergency room 9 times. He has a history of chronic alcohol abuse, epilepsy, marijuana abuse and presented to the emergency room earlier this evening and subsequently eloped and was found to be passed out in his brother's car. He was returned to the hospital by police due to the report by his brother that he had taken a handful of his medications including lisinopril with the intent to kill himself. He had texted his girlfriend this intention earlier. The patient is either unable or unwilling to provide history at this time and therefore he will be admitted to the intensive care unit overnight for observation and monitoring and have the crisis team consulted for management of his psychiatric disorder in the morning Past Medical History Past Medical History (Chronic Problems): Chronic Problems Marfan's syndrome (Chronic) Epilepsy (Chronic) Allergies codeine Allergy (Verified 11/09/19 23:10) NEEDS FOLLOW-UP divalproex sodium [From Depakote] Allergy (Verified 11/09/19 23:10) Hives erythromycin base Allergy (Verified 11/09/19 23:10) NEEDS FOLLOW-UP phenytoin [From Dilantin] Allergy (Verified 11/09/19 23:10) NEEDS FOLLOW-UP Home Medications: Ambulatory Orders Medication Instructions Recorded Carbamazepine [Tegretol] 600 mg PO BIDCM 10/30/19 Lisinopril 5 mg PO DAILY 11/04/19 Surgical History: noncontributory Psychiatric History: No pertinent psych hx Smoking Status: Current every day smoker - *Family History Maternal History Items: No pertinent history Paternal History Items: No pertinent history Review of Systems Unable to obtain accurate/complete ROS d/t: patient unwilling to speak to me VTE Information - Inpt Only VTE Present on Admission: No VTE Mechan Device Prophylaxis: None VTE Pharm Prophylaxis ordered?: Yes - Physical Exam Vitals/I&O's: Vital Signs Temp Pulse Resp BP Pulse Ox 97.9 F 90 18 126/72 H 93 11/09/19 23:05 11/09/19 23:05 11/09/19 23:05 11/09/19 23:05 11/09/19 23:05 Oxygen Delivery Method Room Air Weight: 191 lb 9.307 oz Body Mass Index (BMI) 22.7 Finger Stick Blood Glucose 88 General: Non-Cooperative HEENT: Atraumatic, PERRLA, EOMI, Normocephalic Neck: Supple Lungs: Clear to auscultation, Normal air movement Cardiovascular: Regular rate, Normal S1, Normal S2, No murmurs Abdomen: Bowel Sounds Present Extremities: No edema Skin: No rashes Musculoskeletal: No Tenderness to Palpation of Joints or Extremities Neurological: Neuro grossly intact Psych/Mental Status: Irrational Behavior Laboratory Results 11/09/19 23:15: WBC 6.3, RBC 4.25 L, Hgb 12.9 L, Hct 38.3 L, MCV 90.1, MCH 30.4, MCHC 33.7, RDW Std Deviation 46.2 H, RDW Coeff of Evan 14.0, Plt Count 244, MPV 8.9, Immature Gran % (Auto) 0.300, Neut % (Auto) 67.3, Lymph % (Auto) 22.1, [place] % (Auto) 7.7, Eos % (Auto) 2.1, Baso % (Auto) 0.5, Absolute Neuts (auto) 4.3, Absolute Lymphs (auto) 1.40, Nucleated RBC % 0 11/09/19 23:15: Sodium 133 L, Potassium 3.1 L, Chloride 99, Carbon Dioxide 23.0, Anion Gap 11, BUN 3 L, Creatinine 0.81, Estim Creat Clear Calc 144.54, Est GFR (MDRD) Af Amer 133, Est GFR (MDRD) Non-Af 110, BUN/Creatinine Ratio 3.7 L, Glucose 75, Calcium 8.0 L 11/09/19 23:15: Ethyl Alcohol 226.0 Assessment/Plan All Active Problems Polypharmacy (Acute) Intentional overdose of drug in tablet form (Acute) Status epilepticus (Acute) Alcohol abuse (Acute) Alcohol intoxication (Acute) Plan 1. Possible polypharmacy overdose with intention of self-harm?admit to ICU for observation overnight contact crisis for consultation in the morning?continue restraints as needed. The patient has been pink slipped for 24-hour hold and restraints may be necessary as he is already eloped from our facility 1 time this evening. 2. Alcohol intoxication?monitor for resolution, perhaps case management can help with outpatient support 3. Seizure disorder?hold medications this evening and monitor 4. DVT prophylaxis?low molecular weight heparin Inpatient E&M: 66031 Init Hosp L3
--- NOTE | 2019-11-10 04:02 | ED.RN ---
0300, PT returns to ED via police x 3. Placed back into room 4 where he was removed of clothing and updated on POC. PT became verbally aggressive when told to get undressed. Police and security at bedside. Dr. Aldrich at bedside who ordered 4-point restraints. PT placed in 4-point restraints by myself and Suyapa Gonzales with back up aid of police and security. Pt informed of POC. Dr. Potts at bedside for admission. IV placed back in original placement, secured and wrapped. Pending bed assignment.
--- NOTE | 2019-11-10 04:30 | NURSING ---
patient to ICU bed, bilateral locked wrist restraints with right arm up and left arm down.
--- NOTE | 2019-11-10 04:42 | NURSING ---
arrived to unit from ED, transferred to ICU bed x6 assist d/t pt combative, uncooperative, belligerent, and disoriented. Locked restraints to bilateral wrists and ankles for safety- see restraint documentation. This RN attempted to complete admission questions, pt answered a few questions then stated get the fuck out of my room and leave me the fuck alone. Sitter at bedside for suicide precautions, will continue to monitor pt.
--- NOTE | 2019-11-10 05:10 | NURSING ---
this RN and Omid Michel RN attempted to draw BMP, pt pulling arm away, sticking out tongue, and uncooperative with blood draw. Unsafe to draw blood at this time. made aware.
--- NOTE | 2019-11-10 05:30 | NURSING ---
bilateral locked wrist restraints with left arm up and right arm down.
--- NOTE | 2019-11-10 06:30 | NURSING ---
bilateral locked wrist restraints with right arm restrained above head and left arm restrained down at side.
--- NOTE | 2019-11-10 08:23 | CON.PCM_ITS ---
Problem List (1) Polypharmacy Status: Acute (2) Intentional overdose of drug in tablet form Status: Acute (3) Alcohol abuse Status: Acute (4) Marfan's syndrome Status: Chronic (5) Epilepsy Status: Chronic (6) Alcohol intoxication Status: Acute Reason for Consult Date of Consultation: 11/10/19 Reason for Consultation: Lisinopril overdose History of Present Illness: The patient is a 44 year old M, with past medical history listed below, who presented to [facility] on 11/09/2019 secondary to a suspected overdose. Patient reportedly had been drinking on the day of presentation and texted his girlfriend that he wanted to kill himself. Patient's brother reportedly saw him take a handful of medications at approximately 11 PM. Patient's brother thought this may be lisinopril. Patient was not very f orthcoming with information on his arrival. In the ER, patient was noted to smell of alcohol, but neurologically did not have any focal deficits. Laboratory work-up was relatively unremarkable except for hypokalemia at 3.1, elevated alcohol level and normal anion gap. Patient was not given activated charcoal secondary to concerns for aspiration. Patient was pink slipped, but left the ER and returned accompanied by the police. Patient was placed in leather restraints and admitted to the intensive care unit. Overnight in the intensive care unit, patient's blood pressure has decreased slightly, but no interventions have been required. Patient has remained in four-point restraints secondary to aggressive behavior. Patient rests most of the time, but anytime he is awoken he becomes belligerent with staff and pulls of his restraints. Patient threatens to leave AGAINST MEDICAL ADVICE and has been threatening to nursing. Patient is not cooperative with any effort to obtain additional information, but does not appear to show any remorse for his overnight actions. Unable to obtain a full review of systems. Past Medical History Past Medical History (Chronic Problems): Chronic Problems Marfan's syndrome (Chronic) Epilepsy (Chronic) Allergies codeine Allergy (Verified 11/09/19 23:10) NEEDS FOLLOW-UP divalproex sodium [From Depakote] Allergy (Verified 11/09/19 23:10) Hives erythromycin base Allergy (Verified 11/09/19 23:10) NEEDS FOLLOW-UP phenytoin [From Dilantin] Allergy (Verified 11/09/19 23:10) NEEDS FOLLOW-UP Home Medications: Ambulatory Orders Medication Instructions Recorded Carbamazepine [Tegretol] 600 mg PO BIDCM 10/30/19 Lisinopril 5 mg PO DAILY 11/04/19 Surgical History: noncontributory Psychiatric History: No pertinent psych hx Smoking Status: Current every day smoker - *Family History Maternal History Items: No pertinent history Paternal History Items: No pertinent history Review of Systems Unable to obtain accurate/complete ROS d/t: Patient cooperation - Physical Exam Vitals/I&O's: Vital Signs Temp Pulse Resp BP Pulse Ox 36.2 C L 60 10 L 99/68 99 11/10/19 04:30 11/10/19 06:45 11/10/19 06:45 11/10/19 06:45 11/10/19 06:45 Oxygen Delivery Method Room Air Weight: 82.6 kg Body Mass Index (BMI) 17.7 Finger Stick Blood Glucose 88 General: No apparent distress, Confused, Disoriented, Lethargic HEENT: Atraumatic, PERRLA, EOMI, Normocephalic, - - Scleral injection without icterus Oral: Moist Mucosa, No Gingival or Mucosal Lesions/ Ulcerations Neck: Supple, No JVD, No Nodes, Trachea Midline Lungs: Clear to auscultation, Normal air movement, No rhonchi, No wheeze, No rales Cardiovascular: Regular rate, Regular Rhythm, Normal S1, Normal S2, No murmurs, No rub noted, No Gallop Abdomen: Bowel Sounds Present, Soft, Non Tender, Non-Distended Extremities: No clubbing, No cyanosis, No edema, Capillary Refill Less than 3 Seconds Skin: No rashes, No breakdown Musculoskeletal: No Tenderness to Palpation of Joints or Extremities Lymphatic: No Cervical, Supraclavicular, or Inguinal Adenopathy Neurological: Cranial nerves II-XII grossly intact, Neuro grossly intact, Motor Exam 5/5 strength throughout Psych/Mental Status: Agitated - When awoken, Impulsive - When awoken Laboratory Results 11/09/19 23:15: WBC 6.3, RBC 4.25 L, Hgb 12.9 L, Hct 38.3 L, MCV 90.1, MCH 30.4, MCHC 33.7, RDW Std Deviation 46.2 H, RDW Coeff of Evan 14.0, Plt Count 244, MPV 8.9, Immature Gran % (Auto) 0.300, Neut % (Auto) 67.3, Lymph % (Auto) 22.1, [place] % (Auto) 7.7, Eos % (Auto) 2.1, Baso % (Auto) 0.5, Absolute Neuts (auto) 4.3, Absolute Lymphs (auto) 1.40, Nucleated RBC % 0 11/09/19 23:15: Sodium 133 L, Potassium 3.1 L, Chloride 99, Carbon Dioxide 23.0, Anion Gap 11, BUN 3 L, Creatinine 0.81, Estim Creat Clear Calc 144.54, Est GFR (MDRD) Af Amer 133, Est GFR (MDRD) Non-Af 110, BUN/Creatinine Ratio 3.7 L, Glucose 75, Calcium 8.0 L 11/09/19 23:15: Ethyl Alcohol 226.0 Current Medications Enoxaparin Sodium (Lovenox) 40 mg SC DAILY [facility] Potassium Chloride/Dextrose/Sod Cl () 1,000 mls @ 125 mls/hr IV .Q8H [facility] Last Admin: 11/10/19 05:36 Dose: 125 mls/hr Documented by: Sodium Chloride () 10 - 40 ml IV UD PRN PRN Reason: SALINE FLUSH Assessment/Plan RECOMMENDATIONS: 1. Continue supportive therapy for overdose 2. Monitor for seizure activity 3. Attempt to decrease restraints when appropriate 4. Crisis evaluation once hemodynamically stable IMPRESSIONS: 1. Acute intentional polypharmacy overdose with intent for self-harm Patient was intoxicated, but reportedly had sent a text to his girlfriend about his intentions. Patient has remained significantly agitated during hospitalization requiring locked restraints. Patient has already eloped once during this hospitalization requiring police escort to return. Will require a crisis evaluation prior to any discharge. [place] slip has already been completed. Supportive therapy for now. 2. Acute alcohol intoxication Patient appears to be tolerating well. We will have to watch for withdrawal type symptoms as patient has had multiple presentations with acute alcohol intoxication. 3. Seizure disorder/Marfan syndrome/multiple ER presentations/history of leaving AMA Complicates care, management, recovery and prognosis. Will need to bhvaesh tor patient closely for seizure disorder. Patient is on appropriate DVT prophylaxis. Can initiate diet once patient is more appropriate. Addendum 1355: Called to patient's room at approximately 1 PM secondary to possible seizure activity. Patient reportedly had woken up and stated that he was hungry. Patient was requesting transfer to a different facility and reportedly gave the nurse conflicting stories on what medications he may have taken. When patient was given a tray he dumped it all over his bed. Shortly thereafter, patient acted as though he was unresponsive and started shaking. There was some concern given his seizure activity so I was asked to evaluate the patient. On my evaluation, patient's eyes blinked to loud stimulus. Patient also had gritting of the teeth with sternal rub. Patient did have a gag reflex noted. There was no loss of bowel or bladder function. No laceration of the tongue was appreciated. There was no interference noted on EKG. Patient was observed, no medications were given. Inpatient E&M: 81269 Init Hosp L3
--- NOTE | 2019-11-10 09:23 | NURSING ---
Addendum entered by Javon Mak 11/10/19 11:31: Lt hand cool but good pulse and pink in color. B/L hands appear the same. Addendum entered by Javon Mak 11/10/19 11:29: While pt was awake tried to move patients restraint down to another part of the bed so his arm was not up over his head as it is right now. Pt stated I'm fine. Offered again as concerned for blood flow due to position. Pt stated I'M FINE! Did not reposition due to refusal. Good pulses, hand cool but pink. Lt hand also cool. Original Note: Pt awoke, states he wants out of the restraints. Advised we will try to get to soft restraints today as long as he will cooperate. Pt states I'm fine today. You have 72 hours to get me out of these restraints, I know the rules. Advised pt he was just admitted last night. Reassured we will try to get him out of the locked restraints today as long as he is cooperative and does not pose a threat to himself or staff. Sitter remains at bedside. Seizure precautions maintained.
--- NOTE | 2019-11-10 12:40 | NURSING ---
Pt awakened by Dr Izquierdo. Pt asking to get out of restraints. Reminded pt that he will need to be cooperative and follow directions to keep himself and staff safe. Pt agreeable. Pt denied the need to urinate. Pt did not know where he was at. Re-oriented to [facility]. Pt does not remember what brought him to the hospital last night. Informed him that he was intoxicated, left the emergency room AMA, then was unresponsive in his brother's car after taking a handful of his pills. And that his brother thought it was his blood pressure pills. Pt states he only took 3 ibuprofen and 3 Tylenol because his back hurt from falling last week at home when he had a seizure. Adv pt that his brother reported he took a handful of his blood pressure pills and had reported to his girlfriend that he wanted to hurt himself. Pt denies suicidal attempt or current suicidal ideation. States he did not take a bunch of his pills, just his 3 ibuprofen and 3 tylenol. Placed in b/l soft wrist restraints, right arm left untied so that pt could eat his lunch. Pt asked for his glasses which were given to him. Pt having some difficulty with getting food on fork and to his mouth. Assistance offered but pt declined. Sitter remained at bedside. RN left the room. While I was gone pt threw his tray on the floor. Right hand tied w/soft restraint. Told the sitter It's your fucking fault they kept me here last night you dumbass bitch. This RN into room, pt states that something is wrong with him because he feels doped up and cannot even eat. Advised pt that if he needed assistance with eating we were able to help him. Pt states My kidneys and liver are probably shot because I probably took too much of my medicine on accident or something. Offered pt to lay back in bed, he agreed. Head of bed lowered to 30 degrees. RN left the room to notify Dr Little what pt had reported. When this RN went back into the room, the pt started with mild twitching of his extremities and had his eyes closed. Pt not awaking to verbal stimuli. VSS. When performed sternal rub, extremities shook faster and harder and then went back to mild twitching. biometric screener, Charissa, in room w/this RN. Pt seen puckering lips out and letting slobber fall out the side of his mouth. Charissa RN, went to get Dr Little. This RN suctioned pt's mouth. He did have a gag reflex w/suctioning. When Dr Little entered the room the pt blinked his eyes to him verbally stating his name. There was no artifact on the child monitor during episode. Pt was not incontinent of urine. Sitter remains at bedside. Episode started at 1252, lasted until 1310. Pt then resting quietly. Noted at 1315 to pull the sheet up over his head to sleep. Sitter remains at bedside. Will continue to monitor.
--- NOTE | 2019-11-10 12:57 | CASEMGMT ---
Social Work Note SW participated in ICU rounds. Pt will need crisis evaluation once medically cleared. Yoselin Mota PROPOSAL ANALYST, STORE WORKER
--- NOTE | 2019-11-10 13:42 | NURSING ---
Dr Izquierdo notified of pt's episode. states that pt is medically cleared and nursing can call Crisis to come evaluate.
--- NOTE | 2019-11-10 17:46 | PCM.HOSP.N ---
Hospitalist Note She was seen and examined today, late this afternoon he appeared to be more calm and restraints were changed. I am not sure the patient took an intentional overdose of any med, I do believe he was intoxicated however. I want crisis to see the patient and determine whether he indeed try to hurt himself or whether this was some kind of manipulative behavior. Crisis requested a alcohol level which was ordered. I talked briefly with critical care about the patient's care.
--- NOTE | 2019-11-10 19:10 | NURSING ---
Dr Izquierdo up to see pt again this evening. Pt reported that he only took extra Tegretol because it wasn't working and he was still having seizures. States he does not have any suicidal ideation and was not trying to kill himself. States he did not take extra Lisinopril, I wouldn't do that. Reports he does not know anything about texting his girlfriend that he was suicidal.
--- NOTE | 2019-11-10 20:00 | DCINST_ITS ---
- Discharge Diagnoses Reason(s) for Visit for Discharge Instructions: Intentional Overdose You will use the following diet at home:: Regular Your food should be the consistency of: Regular Discharge Activity: Return to Normal Activity Return to work on:: 11/11/19 May resume sexual activity in: No Restrictions Weight Bearing Status: Full weight bearing Call your doctor if you observe: Fever of 101 or Higher, Coldness, Increased Pain, Shortness of breath, Dizziness, Chest pain Allergies/Adverse Reactions: Allergies codeine Allergy (Verified 11/09/19 23:10) NEEDS FOLLOW-UP divalproex sodium [From Depakote] Allergy (Verified 11/09/19 23:10) Hives erythromycin base Allergy (Verified 11/09/19 23:10) NEEDS FOLLOW-UP phenytoin [From Dilantin] Allergy (Verified 11/09/19 23:10) NEEDS FOLLOW-UP Medications to take at Discharge Carbamazepine [Tegretol] 600 mg PO BIDCM 10/30/19 Lisinopril 5 mg PO DAILY 11/04/19 Primary Care Physician: Care Physician,No Primary [Primary Care Provider] - Test Results: Test results from this visit will be discussed in further detail at your follow- up appointment, if applicable. Proposed Discharge Date: 11/10/19
--- NOTE | 2019-11-10 20:14 | PCM.PN.BLA ---
Progress Note Discussed with counseling service will set it is okay for patient to discharge home from the standpoint. Nurse reported patient is stable. Discussed earlier on with rounding attending who recommended that patient be discharged home if okay with counseling services. Discharge orders placed. Attending MD Dr. Eron Izquierdo to write comprehensive discharge summary. STROKE Vital Signs/Narrative: Vital Signs Pulse Resp BP Pulse Ox 11/10/19 18:00 82 12 126/90 H 100 11/10/19 17:00 74 15 131/81 H 100
--- NOTE | 2019-11-10 20:26 | NURSING ---
1932: received call from Rere from [facility] and stated that she would like to speak to the doctor. Took down her information and paged Dr. Quinonez 1934: Dr. Quinonez returned phone call and given contact information for Rere from [facility] 1999: Received call from Dr. Quinonez and he stated that the patient is cleared to be discharged home and will be entering the order 2009: notified patient patient that he was being discharged home. Restraints removed. Offer to notify family and call a ride for him. He declined and stated that he would do it himself. Returned belongings to patient. 2019: patient assisted to wheelchair. Sitting in wheelchair at nurses station on his phone. 2025: Patient asked to be taken to the main entrance and stated that he will walk home. Offered to call a ride again and patient refused. Escorted to the main entrance by [employer] via wheelchair.
--- NOTE | 2019-11-10 20:28 | PCM.DC.SUM ---
Discharge Date and Diagnosis Date of Admission: 11/10/19 Date of Discharge: 11/10/19 - Primary Discharge Diagnosis Acute Problems: #1 alcohol intoxication #2 seizure disorder #3 inappropriate ingestion of home medications-not felt to be a suicide attempt #4 chronic alcoholism It was felt the patient did not try to attempt suicide - Secondary Discharge Diagnosis Chronic Problems: Chronic Problems Marfan's syndrome (Chronic) Epilepsy (Chronic) Hospital Course and Treatment Consultations 11/10/19 04:24 Crisis [Consult: Mental Health/Crisis] Routine Reason for consult?: suicide attempt Date Notified:: 11/10/19 Time Notified:: 14:56 Operations: None Procedures: None Summary of Care Provided: The patient is a 44 year old M seen in the emergency room at [facility] after being brought in by his brother-his brother thought that he had ingested a large amount of some medication, patient was intoxicated and getting an appropriate story from the patient was not possible. Patient at one time left the emergency room and was found in the parking lot in his brother's car asleep in the backseat passed out. Patient's blood alcohol level was 226, chemistry was remarkable for a potassium of 3.1 which is not felt to be significant. Patient was admitted to ICU, he remained relatively calm in ICU with no violent outbursts, patient requested to be unrestrained and requested to go home, patient was initially pink slipped and a second blood alcohol level was obtained which was normal. In the early evening of 11/10/2019, crisis was contacted and reviewed his case, they did not feel that he was a threat to himself to be discharged home. Patient denied any intentional overdose of medications, he did state that he took an extra 1 of his seizure medications-he states I did not feel it was working patient denied overdosing on lisinopril. On examination he appeared in good health and spirits. Vital signs as documented. Skin warm and dry and without overt rashes. Neck without JVD, neck was supple, trachea midline, thyroid was normal. Lungs clear bilaterally, normal air movement was noted. Heart exam notable for regular rhythm, normal sounds and absence of murmurs, rubs or gallops. Abdomen unremarkable and without evidence of organomegaly, masses, or abdominal aortic enlargement. Bowel sounds are present, abdomen is not distended. Extremities nonedematous, no cyanosis was noted, no clubbing was noted. Neuro: Cranial nerves II through XII are grossly intact, no focal motor deficits were noted, sensation to light touch and pinprick intact, motor exam 5/5 throughout. Psych: Patient is alert and oriented x3, he does not appear anxious or depressed, he does not appear agitated. Patient was discharged home in stable condition on 11/10/2019. - Physical Exam Vitals/I&O's: Vital Signs Temp Pulse Resp BP Pulse Ox 98.7 F 90 12 135/88 H 100 11/10/19 20:26 11/10/19 20:26 11/10/19 20:26 11/10/19 20:26 11/10/19 20:26 Oxygen Delivery Method Room Air Weight: 82.6 kg Body Mass Index (BMI) 17.7 Finger Stick Blood Glucose 88 Intake and Output for Last 24 Hours 11/08/19 11/09/19 11/10/19 23:59 23:59 23:59 Intake Total 1105.00 / 1105.00 Output Total 0 / 0 Balance 1105.00 / 1105.00 Laboratory Results 11/09/19 23:15: WBC 6.3, RBC 4.25 L, Hgb 12.9 L, Hct 38.3 L, MCV 90.1, MCH 30.4, MCHC 33.7, RDW Std Deviation 46.2 H, RDW Coeff of Evan 14.0, Plt Count 244, MPV 8.9, Immature Gran % (Auto) 0.300, Neut % (Auto) 67.3, Lymph % (Auto) 22.1, Castro % (Auto) 7.7, Eos % (Auto) 2.1, Baso % (Auto) 0.5, Absolute Neuts (auto) 4.3, Absolute Lymphs (auto) 1.40, Nucleated RBC % 0 11/09/19 23:15: Sodium 133 L, Potassium 3.1 L, Chloride 99, Carbon Dioxide 23.0, Anion Gap 11, BUN 3 L, Creatinine 0.81, Estim Creat Clear Calc 144.54, Est GFR (MDRD) Af Amer 133, Est GFR (MDRD) Non-Af 110, BUN/Creatinine Ratio 3.7 L, Glucose 75, Calcium 8.0 L 11/09/19 23:15: Ethyl Alcohol 226.0 11/10/19 17:05: Ethyl Alcohol 9.0 Current Medications Enoxaparin Sodium (Lovenox) 40 mg SC DAILY [facility] Last Admin: 11/10/19 11:03 Dose: Not Given Documented by: Potassium Chloride/Dextrose/Sod Cl () 1,000 mls @ 125 mls/hr IV .Q8H [facility] Last Admin: 11/10/19 14:10 Dose: 125 mls/hr Documented by: Levetiracetam 500 mg/ Sodium (Chloride) 105 mls @ 400 mls/hr IV Q12 [facility] Last Infusion: 11/10/19 11:18 Dose: Infused Documented by: Sodium Chloride () 10 - 40 ml IV UD PRN PRN Reason: SALINE FLUSH Discharge Activity: Return to Normal Activity Return to work on:: 11/11/19 May resume sexual activity in: No Restrictions Weight Bearing Status: Full weight bearing Call your doctor if you observe: Fever of 101 or Higher, Coldness, Increased Pain, Shortness of breath, Dizziness, Chest pain Home Medications: Medications to take at Discharge Carbamazepine [Tegretol] 600 mg PO BIDCM 10/30/19 Lisinopril 5 mg PO DAILY 11/04/19 Primary Care Physician: Care Physician,No Primary [Primary Care Provider] - Disposition: Home Minutes spent on discharge:: 30 Patient Condition:: Stable Medical Necessity - Tobacco Use Smoking Status: Current every day smoker Meaningful Use Info Meaningful Use Diagnoses (Choose all that apply): None applicable OBSV E&M: 83631 Observ/hosp same date L3
== END 2019-11-10 20:26 | disposition home or self-care (01) ==
LOC: ED 11-10 01:23 → ICU 11-10 05:21
PROVIDERS: Admitting Provider Family Medicine; Emergency Provider Emergency Medicine; Visit Provider Internal Medicine
DX: F10.229 Alcohol dependence with intoxication, unspecified (principal); G40.909 Epilepsy, unspecified, not intractable, without status epilepticus; Q87.40 Marfan syndrome, unspecified; T46.4X1A Poisoning by angiotensin-converting-enzyme inhibitors, accidental (unintentional), initial encounter; Y90.7 Blood alcohol level of 200-239 mg/100 ml; Z79.899 Other long term (current) drug therapy; F17.200 Nicotine dependence, unspecified, uncomplicated
CPT/HCPCS: 36415; 80048; 80320; 85025; 96361; 96365; 99218; 99285; A4216; G0378; G0480

== ENCOUNTER 2019-11-12 23:11 | Emergency (ER) | payer SELFPAY ==
[2019-11-10 04:52] VITALS: BMI 17.7
[2019-11-12 23:12] VITALS: BP 144/80; PULSE 85; RESP 16; TEMP 36.3; O2SAT 99; BMI 17.1
--- NOTE | 2019-11-12 23:34 | ED.VIS.GEN ---
History of Present Illness Chief Complaint: Edema Informant: Patient Narrative: Stated he was recently here for possible seizure. He had an IV placed in his right calf as he stated that the only place that he can get IVs. He is noticed some mild increased swelling to that leg since. He stated that he noticed that he had a ring around his ankle when he took his sock off. Denies any redness. No history of blood clots. Comes in for further evaluation of it. Current severity is mild. - Past Medical History (1) Alcohol abuse Status: Acute (2) Alcohol intoxication Status: Acute (3) Intentional overdose of drug in tablet form Status: Acute (4) Polypharmacy Status: Acute (5) Status epilepticus Status: Acute (6) Epilepsy Status: Chronic (7) Marfan's syndrome Status: Chronic Past Medical History - Allergies and Home Meds Allergies/Adverse Reactions: Allergies codeine Allergy (Verified 11/12/19 23:14) NEEDS FOLLOW-UP divalproex sodium [From Depakote] Allergy (Verified 11/12/19 23:14) Hives erythromycin base Allergy (Verified 11/12/19 23:14) NEEDS FOLLOW-UP levetiracetam [From Keppra] Allergy (Verified 11/12/19 23:14) Hives phenytoin [From Dilantin] Allergy (Verified 11/12/19 23:14) NEEDS FOLLOW-UP Primary Care Physician: Care Physician,No Primary [Primary Care Provider] - Prior records reviewed: Yes Past Medical History: - - See problem list Surgical History: noncontributory Lives: With Family Smoking Status: Current every day smoker Drugs: None - Family History Maternal Family History: Reports: No pertinent history Paternal Family History: Reports: No pertinent history Review of Systems General: Denies: Chills, Fever, Sweats Eyes: Denies: Visual changes - bilaterally, Diplopia ENT: Denies: Rhinorrhea, Sore throat Cardiovascular: Denies: Chest pain, Palpitations Respiratory: Denies: Dyspnea, Cough, Dyspnea on exertion Gastrointestinal: Denies: Abdominal pain, Nausea, Vomiting, Diarrhea, Melena, Hematochezia Genitourinary: Denies: Dysuria, Hematuria, Frequency Musculoskeletal: Reports: Swelling, Extremity Pain. Denies: Back pain Skin: Denies: Rash, Wounds Neurological: Denies: Headache, Weakness, Numbness Physical Exam Vital Signs/Narrative: Vital Signs Temp Pulse Resp BP Pulse Ox 11/12/19 23:12 97.4 F L 85 16 144/80 H 99 General: Well nourished, Well developed, No Acute Distress Head: Normocephalic, Atraumatic Eyes: Perrl, EOMI ENT: Moist mucous membranes, No rhinorrhea Neck: Supple, Nontender Cardiovascular: Regular rate, Regular rhythm, No murmurs Respiratory: No distress, CTA bilaterally, Chest nontender Abdomen: Soft, Nontender, Nondistended, Normal bowel sounds Back: Nontender, Normal Inspection Extremities: Nontender, Edema - She has no significant edema to the right lower extremity or foot. I do not see any pitting. Normal pulses. Normal color. The IV site is clean dry and intact. Patient was reassured Skin: Normal color, No rash Neurological: Alert, Oriented x3, Cranial nerves II-XII grossly intact, Normal Strength, Normal Sensation Psychological: Normal affect, Normal Mood Diagnostic/Tx/Re-eval - Medical Decision Making Time I do not feel the patient has a blood clot. There is no superficial thrombophlebitis or cellulitis. I do not feel he needs ultrasound or further evaluation. This may be irritation from his IV site which appears normal. We will follow-up as an outpatient return if it worsens ED Disposition - Plan for ED Patient: Disposition: Home or Assisted Living Diagnosis: Leg edema Instructions: ED Peripheral Edema, Unilateral Referrals: Javon Driscoll DO [NON CLINICAL AFFILIATE] -
== END 2019-11-12 23:48 | disposition home or self-care (01) ==
LOC: ED 23:46
PROVIDERS: Emergency Provider Emergency Medicine
DX: R60.0 Localized edema (principal); G40.909 Epilepsy, unspecified, not intractable, without status epilepticus; Q87.40 Marfan syndrome, unspecified; F17.200 Nicotine dependence, unspecified, uncomplicated; Z79.899 Other long term (current) drug therapy
CPT/HCPCS: 99282

== ENCOUNTER 2019-11-13 11:50 | Emergency (ER) | payer SELFPAY ==
[2019-11-12 23:12] VITALS: BMI 17.1
[2019-11-13 11:51] VITALS: BP 129/86; PULSE 82; RESP 16; TEMP 36.7; O2SAT 96; BMI 17.1
--- NOTE | 2019-11-13 12:10 | ED.VISSUMM ---
- ER Visit Summary Date of Service: 11/13/19 Chief Complaint: Reported seizure History of Present Illness: The patient is a 44 M recently frequent visitor to this emergency department from coming to town from [place]. Patient has known seizure disorder, alcohol abuse, hypertension and has had prior overdoses. History of prior pituitary tumor. Reportedly patient was found in the park either having a seizure or recently had a seizure. He is currently not seizing. States he is on a seizure medication. He denies any headache, chest pain, shortness of breath, abdominal pain, fever or vomiting. Physical Examination: Tall middle-aged male no acute distress vital signs stable afebrile. HEENT exam give dry reactive light. No trauma to his face or scalp. Normal speech. Neck nontender no lymphadenopathy. Lungs clear to auscultation bilaterally. Heart regular rhythm no murmur. Abdomen soft nontender no bowel sounds no peritoneal signs. Patient moving all 4 extremities. They appear to be neurovascular intact. There is no edema. He has normal range of motion and strength. Neurologically is awake alert with no focal motor deficits. Test Results: CBC white count of 3. Hemoglobin 14. Chemistry canceled by lab alcohol level less than 3. Emergency Department Course and Treatment: Patient with reported recurrent seizure with a known seizure disorder. We will obtain screening labs. He is on a monitor and they are trying obtain an IV. Called in the room by the nursing staff to determine if patient was actually seizing. He would not respond though I picked his hand up over his head he would hit himself in the face. He woke up immediately. Treatment Plan: About an hour and a patient stay while labs were pending he got up made some rude comments to the nursing staff and left without being discharged. Disposition: Eloped Impression: Reported seizure History of seizure disorder Eloped prior to being discharged This note was generated with [employer] dictation software. It may contain incorrect words, spelling, and punctuation that were not noted in review of the chart prior to signing ED Disposition - Plan for ED Patient: Disposition: Against Medical Advice Referrals: Care Physician,No Primary [Primary Care Provider] -
[2019-11-13 12:25] LABS: Absolute Lymphocyte Count 1.06 X10^3/uL (0.83-4.51); Absolute Neutrophil Count 1.6 X10^3/uL (2.0-7.7); Basophil# 0.04 X10^3/uL; Basophil% 1.2 % (0-1); Eosinophil# 0.21 X10^3/uL; Eosinophils% 6.4 % (0-5); Hematocrit 43.6 % (40-54); Hemoglobin 14.6 g/dL (13.0-16.5); Lymphocyte # 1.06 X10^3/ul (4.0); Lymphocyte % 32.2 % (19-41); Mean Corp Hgb Conc 33.5 g/dL (32-36); Mean Corpuscular Hgb 30.5 pg (27.0-32.0); Mean Corpuscular Volume 91.2 fL (80-94); Mean Platelet Vol. 8.7 fl (6.2-12.0); Monocyte# 0.41 X10^3/uL; Monocyte% 12.5 % (0-10); NRBC Flagged by Analyzer 0 % (0-5); Neutrophil # 1.55 X10^3/uL (2.7-7.7); Neutrophil % 47.1 % (47-70); Platelet Count 251 K/mm3 (150-450); RBC Distribution Width CV 14.3 % (11.6-14.6); RBC Distribution Width SD 47.9 fl (35.1-43.9); Red Blood Count 4.78 M/mm3 (4.6-6.2); White Blood Count 3.3 K/mm3 (4.4-11.0)
[2019-11-13 12:47] LABS: Alcohol, Blood (Medical)-Serum < 3.0 mg/dL
[2019-11-13 12:53] VITALS: PULSE 80; RESP 16
[2019-11-13 13:05] VITALS: PULSE 71; RESP 17
--- NOTE | 2019-11-13 13:08 | ED.RN ---
lab called for draw. Pt has been poked [address] brannon
--- NOTE | 2019-11-13 13:13 | ED.RN ---
pt removed iv and states im leaving.
== END 2019-11-13 13:49 | disposition left against medical advice (07) ==
LOC: ED 12:47
PROVIDERS: Emergency Provider Emergency Medicine
DX: R56.9 Unspecified convulsions (principal); I10 Essential (primary) hypertension; F17.200 Nicotine dependence, unspecified, uncomplicated
CPT/HCPCS: 80320; 85025; 99285; A4216; G0480

== ENCOUNTER 2019-11-17 21:36 | Emergency (ER) | payer MEDICAID, SELFPAY ==
[2019-11-17 21:38] VITALS: BP 112/72; PULSE 87; RESP 14; TEMP 36.4; O2SAT 100; BMI 17.2
--- NOTE | 2019-11-17 21:52 | US_ITS ---
STUDY: VENOUS DOPPLER ULTRASOUND - RIGHT LOWER EXTREMITY REASON FOR EXAM: Male, 44 years old. RT CALF PAIN TECHNIQUE: Ultrasound evaluation of the deep vein system to include kelley-scale imaging and compression was performed. Kelley-scale imaging and Doppler sonographic evaluation, including duplex spectral analysis and qualitative color flow sonography, was performed. COMPARISON: None. FINDINGS: Common Femoral Vein: Normal compression, spontaneity and augmentation. Normal color Doppler. Common Femoral Vein/Greater Saphenous Junction: Normal compression, spontaneity and augmentation. Normal color Doppler. Deep Femoral Vein: Normal compression, spontaneity and augmentation. Normal color Doppler. Femoral Proximal: Normal compression, spontaneity and augmentation. Normal color Doppler. Femoral Middle: Normal compression, spontaneity and augmentation. Normal color Doppler. Femoral Distal: Normal compression, spontaneity and augmentation. Normal color Doppler. Popliteal Vein: Normal compression, spontaneity and augmentation. Normal color Doppler. Posterior Tibial Vein: Normal compression, spontaneity and augmentation. Normal color Doppler. Peroneal Vein: Normal compression, spontaneity and augmentation. Normal color Doppler. The left common femoral vein demonstrates normal flow, compression and augmentation without thrombosis. There is a occlusive clot within the superficial greater saphenous vein which corresponds to the palpable painful area in the right upper calf. US/Venous Duplex Imag/Limited/Uni IMPRESSION: No DVT occlusive clot within the superficial greater saphenous vein which corresponds to the palpable painful area in the right upper calf. Electronically Signed: Afshin Pablito, at 22:56 EDT Tel , Service support ,
--- NOTE | 2019-11-17 22:13 | ED.VIS.GEN ---
History of Present Illness Chief Complaint: Lower Extremity Injury Informant: Patient Onset: Weeks Context: Gradual Onset Timing: Continuous Narrative: Patient is a 44-year-old male with history of seizure disorder presenting with concern for DVT in his right lower extremity. Patient was admitted to the hospital 11 days ago and had IV in his right lower leg. Patient states he received Keflex to the IV. Since then he has had pain and swelling streaking up his right medial leg and into his knee. Patient is concerned he might have a DVT. He states that he was supposed to have an ultrasound but he left before it can be done. Patient's been taking Naprosyn with no significant leaf of his pain. He denies any other complaints at this time. Past Medical History - Allergies and Home Meds Allergies/Adverse Reactions: Allergies codeine Allergy (Verified 11/17/19 21:38) NEEDS FOLLOW-UP divalproex sodium [From Depakote] Allergy (Verified 11/17/19 21:38) Hives erythromycin base Allergy (Verified 11/17/19 21:38) NEEDS FOLLOW-UP levetiracetam [From Keppra] Allergy (Verified 11/17/19 21:38) Hives phenytoin [From Dilantin] Allergy (Verified 11/17/19 21:38) NEEDS FOLLOW-UP Primary Care Physician: Care Physician,No Primary [Primary Care Provider] - Past Medical History: - - Alcohol abuse, epilepsy, Marfan syndrome Surgical History: noncontributory Smoking Status: Current every day smoker - Family History Maternal Family History: Reports: No pertinent history Paternal Family History: Reports: No pertinent history Review of Systems General: Denies: Chills, Fever, Sweats Eyes: Denies: Visual changes - bilaterally, Diplopia ENT: Denies: Rhinorrhea, Sore throat Cardiovascular: Denies: Chest pain, Palpitations Respiratory: Denies: Dyspnea, Cough, Dyspnea on exertion Gastrointestinal: Denies: Abdominal pain, Nausea, Vomiting, Diarrhea, Melena, Hematochezia Genitourinary: Denies: Dysuria, Hematuria, Frequency Musculoskeletal: Reports: Extremity Pain - right leg. Denies: Back pain Skin: Reports: - - redness right calf . Denies: Rash, Wounds Neurological: Denies: Headache, Weakness, Numbness Physical Exam Vital Signs/Narrative: Vital Signs Temp Pulse Resp BP Pulse Ox 11/17/19 21:38 97.5 F L 87 14 112/72 100 Inital Vital Signs reviewed: Yes General: Well nourished, Well developed, No Acute Distress Head: Normocephalic, Atraumatic Eyes: Perrl, EOMI ENT: Moist mucous membranes, No rhinorrhea Neck: Supple, Nontender Cardiovascular: Regular rate, Regular rhythm, No murmurs Respiratory: No distress, CTA bilaterally, Chest nontender Abdomen: Soft, Nontender, Nondistended, Normal bowel sounds Back: Nontender, Normal Inspection Extremities: No edema, - - 4 cm palpable cord right medial upper calf with mild erythema, no overriding cellulitis or warmth. . Negative for: Calf Tenderness Skin: Normal color, No rash Neurological: Alert, Oriented x3, Cranial nerves II-XII grossly intact, Normal Strength, Normal Sensation Psychological: Normal affect, Normal Mood Diagnostic/Tx/Re-eval Venous Duplex No DVT occlusive clot within the superficial greater saphenous vein which corresponds to the palpable painful area in the right upper calf. - Medical Decision Making Patient has palpable cord and pain of his right lower leg. This corresponds to where he had an IV yet. He is otherwise asymptomatic. He is taking Naprosyn for pain at home with no significant relief. Venous duplex ultrasound obtained which not show DVT but does show findings consistent with superficial thrombophlebitis that is area of pain. Patient be treated symptomatically with NSAIDs and warm compresses. He is given Tylenol in the emergency room. He is counseled that he likely need a repeat ultrasound in a couple weeks to ensure resolution and no progression. He is given return precautions. He is referred to PCP for follow-up. Patient is counseled on signs and symptoms requiring return to the emergency room. Patient verbalizes agreement and understand this plan. Patient discharged home in stable and improved condition. ED Disposition - Plan for ED Patient: Disposition: Home or Assisted Living Diagnosis: Superficial thrombophlebitis of right leg Instructions: ED Phlebitis Superficial Referrals: Fredo Cheung III, MD [STAFF PHYSICIAN] - Additional Instructions: Take Tylenol as needed for pain. Apply warm compresses to your leg which will help with inflammation. You may also take ibuprofen for breakthrough pain. Please follow-up with a primary care doctor. If your symptoms worsen do not resolve you might need a repeat ultrasound in a couple weeks.
[2019-11-17] MEDS: Acetaminophen 325 MG Tablet 650 MG PO (23:33)
== END 2019-11-17 23:35 | disposition home or self-care (01) ==
PROVIDERS: Emergency Provider Emergency Medicine
DX: I80.01 Phlebitis and thrombophlebitis of superficial vessels of right lower extremity (principal); F17.200 Nicotine dependence, unspecified, uncomplicated; G40.909 Epilepsy, unspecified, not intractable, without status epilepticus
CPT/HCPCS: 93971; 99283